=== PATIENT | female | born 1960 | race Caucasian/White ===

== ENCOUNTER 2024-12-19 19:07 | Inpatient (IN) | payer BC, SELFPAY ==
[2024-12-19] VITALS (10 sets, daily range): BP systolic 87–137; BP diastolic 47–84; BMI 31.4; BMI 29.9
[2024-12-19 15:07] LABS: Hematocrit 39.3 % (37.0-47.0); Hemoglobin 13.7 g/dL (12.0-16.0); Mean Corp Hgb Conc. 34.9 g/dL (33.0-37.0); Mean Corpuscular Volume 87.9 fL (81.0-99.0); Nucleated Red Blood Cells % 0 %; Platelet Count 482 10^3/uL (130-400); Red Cell Dist. Width 13.0 % (11.5-14.5)
[2024-12-19 15:20] LABS: ALT (SGPT) 17 U/L (0-35); AST (SGOT) 26 U/L (14-36); Albumin 3.7 g/dl (3.5-5.0); Alkaline Phosphatase 258 U/L (38-126); Blood Urea Nitrogen 42 mg/dl (7-17); Calcium 9.1 mg/dl (8.4-10.2); Carbon Dioxide 21 mmol/L (22-30); Chloride 102 mmol/L (98-107); Glucose 146 mg/dl (70-99); Lipase 59 U/L (23-300); Potassium 3.7 mmol/L (3.5-5.1); Sodium 137 mmol/L (135-145); Total Protein 7.6 g/dl (6.3-8.2); eGFR 35.57
[2024-12-19 15:32] LABS: Troponin I < 0.012 ng/ml
--- NOTE | 2024-12-19 16:13 | ED.GENMED ---
History of Present Illness
General
Chief Complaint: Weakness
Source: patient
Exam Limitations: none
Time Seen by Provider: 12/19/24 15:57
History of Present Illness
History of Present Illness:
64-year-old female presents complaining of diffuse weakness and generalized pain. Recent diagnosis of unspecified cancer most prominent in the neck. She has been undergoing tests including CAT scans and most recently had a PET scan today. She
states she is not able to eat or drink anything anytime she drinks water comes right back up. She feels very dehydrated. Her cancer diagnosis is new and she is currently in the workup to determine her primary type of cancer. She follows with
Nelida from oncology. No other complaints at this time
Phy Exam
Physical Exam
Physical Exam:
General: Well-developed female no acute respiratory distress
HEENT normocephalic mucosa dry neck with diffuse adenopathy most prominent on the right
Lungs: Clear no obvious wheeze
Heart: Regular rate and rhythm
Abdomen is soft nontender nondistended
Extremities: No cyanosis or edema
Course
Orders/Labs/Results
Orders:
Orders
12/19/24 14:50
ECG [Electrocardiogram (*1)] Urgent
Reason for Study: Chest Pain
EKG- Treatment ONCE
12/19/24 14:59
Complete Blood Count/With Diff Urgent
Comprehensive Metabolic Panel Urgent
Lactate Level [Lactic Acid] Q4H
Lipase Urgent
Troponin I Urgent
Blood Culture Urgent
KATHE Source: Blood/Venous
Specimen Description:
12/19/24 16:09
0.9% Sodium Chloride 1000 ml [Nss] 1,000 ml IV BOLUS
Ondansetron Injectable [Zofran] 4 mg IV NOW STA
12/19/24 19:00
Lactate Level [Lactic Acid] Q4H
Abnormal Lab Results
12/19/24
14:59
WBC 15.5 H 10^3/uL
(4.8-10.8)
Plt Count 482 H 10^3/uL
(130-400)
Abs Immat Gran (auto) 0.1 H 10^3/uL
(0-0.05)
Absolute Neuts (auto) 13.2 H 10^3/uL
(1.4-6.5)
Absolute Lymphs (auto) 0.6 L 10^3/uL
(1.2-3.4)
Absolute Monos (auto) 1.5 H 10^3/uL
(0.1-0.6)
Immature Gran % 0.6 H %
(0-0.5)
Neutrophils % 85.3 H %
(42.2-75.2)
Lymphocytes % 3.9 L %
(20.5-51.1)
Monocytes % 9.7 H %
(1.7-9.3)
Carbon Dioxide 21 L mmol/L
(22-30)
BUN 42 H mg/dl
(7-17)
Creatinine 1.6 H mg/dL
(0.6-1.0)
Glucose 146 H mg/dl
(70-99)
Alkaline Phosphatase 258 H U/L
(38-126)
12/19/24 14:59
12/19/24 14:59
Vital Signs
Initial and Last Documented VS:
Initial Vital Signs
Temp Pulse Resp BP Pulse Ox
98.6 F 111 20 87/53 98
12/19/24 14:42 12/19/24 14:42 12/19/24 14:42 12/19/24 14:42 12/19/24 14:42
Last Documented Vital Signs
Temp Pulse Resp BP Pulse Ox
98.6 F 111 20 87/53 98
12/19/24 14:42 12/19/24 14:42 12/19/24 14:42 12/19/24 14:42 12/19/24 16:15
MDM/Problems Addressed
Differential Diagnosis Includes:
Patient with generalized weakness unable to tolerate anything by mouth and recent diagnosis of unspecified cancer. She had a PET scan today. In triage she is hypotensive. She has appears very dry on exam. Creatinine is 1.6. I suspect acute
dehydration. Patient unable to eat or drink I suspect she would warrant admission to the hospital for acute kidney injury in the setting of acute dehydration. Fluids ordered
*Pulse Oximetry
SaO2: 98
Oxygen Mode of Delivery: Room air
Patient hypoxic: no
*Critical Care Note
Total Time (30-74mins, 75-104mins- exclusive of procedures): Not Applicable
ED Attending Note
-
Portions of this chart may have been created with voice recognition software.� Occasional wrong word or��sound alike� substitutions may have occurred due to the inherent limitations of voice recognition software.
Discharge Plan
Departure
Patient Disposition: Admit
Date of Disposition: 12/19/24
Time of Disposition: 16:23
Presentation/result/management discussed w/ accepting MD/DO: Hospitalist
Patient with high blood pressure during this ER visit?: No
Discharge Problem:
Acute dehydration
Referrals:
Adilia Calabrese DO [Family Provider, Family Practice]
Discharge Date and Time
Print Language: BELIZEAN
[2024-12-19] MEDS: NSS 1000 IV (16:26)
[2024-12-19] MEDS: ZOFRAN 4 MG IV (16:26)
--- NOTE | 2024-12-19 18:12 | HPS.HSE ---
Family Physician
-
Family Physician: Adilia Calabrese
Chief Complaint
-
Dysphagia, Weakness, Generalized Pain
History of Present Illness
Mrs. Reid is a 64-year-old male with a past medical history of coronary artery disease status post PCI X2, HTN, PUD, HPV, hepatitis C, GERD, HLD and unspecified cancer who presented to the emergency department today with a complaint of weakness
and generalized pain. Patient stated that she was 'dehydrated 'because she has had progressively worsening dysphagia, dry heaving, vomiting with oral intake since November 28. She states that she did not want to come to the hospital for these issues
until she had her PET/CT for her suspected cancer. The study was done this morning and the patient came immediately to the emergency department after. She states that she has not been able to eat or drink anything and when she attempts to eat or
drink it comes right back up. Today she also notes some lightheadedness and dark urine. Otherwise denies chest pain, shortness of breath, gastrointestinal symptoms, abnormal bleeding or bruising.
In the emergency department, blood pressure was 82/53 and patient was tachycardic at 111. Patient was afebrile and saturating 96% on room air. CBC showed a white blood cell count of 15.5 K and platelets of 482. CMP showed a creatinine of 1.6
(creatinine less than 1 week ago was 0.7). Liver studies showed an isolated elevated alkaline phosphatase of 258. The patient was started on IV fluids with hemodynamics improved to 102/60.
Medical History
Past Medical History
Past Medical History: Reports Other
Additional Past Medical History:
coronary artery disease status post PCI X2, HTN, PUD, HPV, hepatitis C, GERD, HLD and unspecified cancer
Past Surgical History: Reports Other
Additional Past Surgical History:
PCI, hysterectomy
Social History
Tobacco: Former Smoker (Quit 4 months ago, started in late 20s, pack per day not quantified by patient)
Alcohol: Occasional
Drug: None
Family History
Family History: Not pertinent
Allergies / Home Medications
Allergies reflects when Allergies were last updated in [facility].
Home Medications with original date entered in [facility]
Allergy/Medication List:
NKDA
Clopidogrel 75 mg p.o. twice daily
Ezetimibe 10 mg p.o. every afternoon
Famotidine 20 mg p.o. twice daily
Hydrochlorothiazide 25 mg p.o. daily
Losartan 50 mg p.o. daily
Metoprolol succinate 50 mg p.o. daily
Omeprazole 20 mg p.o. daily
Rosuvastatin 10 mg p.o. every afternoon
Review of Systems
-
History Source: Patient
A 12 point ROS was completed and negative except as noted: Yes
Physical Exam
Vital Signs
Vital Signs
Temp Pulse Resp BP Pulse Ox
98.6 F 98 33 104/84 94
12/19/24 14:42 12/19/24 18:00 12/19/24 18:00 12/19/24 18:00 12/19/24 18:09
Physical Exam
General: No Apparent Distress, Comfortable, Conversant and Morbidly Obese; No Respiratory Distress
HEENT: NormoCephalic, Anicteric, Neck Mass (Right-sided) and Other (Diffuse lymphadenopathy)
Respiratory: Clear; No Wheezes, Rales or Rhonchi
Cardiac: S1/S2
GI: Soft, Non Tender and Non Distended
Musculoskeletal: No Clubbing, No Cyanosis and No Edema
Skin: Warm
Neuro: Awake, Alert and Nonfocal/grossly intact
Psych: Calm
Laboratory Results
-
12/19/24 14:59
12/19/24 14:59
Laboratory Results
Lactic Acid 1.4 mmol/L (0.7-2.0) 12/19/24 14:59
Total Bilirubin 0.9 mg/dl (0.2-1.3) 12/19/24 14:59
AST 26 U/L (14-36) 12/19/24 14:59
ALT 17 U/L (0-35) 12/19/24 14:59
Alkaline Phosphatase 258 U/L (38-126) H 12/19/24 14:59
Troponin I < 0.012 ng/ml 12/19/24 14:59
Lipase 59 U/L (23-300) 12/19/24 14:59
Data Reviewed
-
CT Scan: Report Reviewed by me and Discussed with Patient
Lab Data: Labs Reviewed by me and Discussed with Patient
Impression/Plan
-
1. Hypovolemic Shock GREY [employer] TESTER, resolved s/p Fluid Bolus
- 82/66 with MADHURI on admission
- Given 1L NS Bolus in ED with improvement in BP to 102/60
- 500mL NSS Bolus followed by maintainence with D5LR at 125 mL/hr
- Hold Home BP meds
2. Failure to Thrive
- Most likely 2/2 esophageal obstruction
- NPO; IVF with D5LR
- CT Chest/Abdomen in AM to assess progression of neck mass
- Discussed radiation therapy vs. PEG
- Oncology Consult
3. Moderate Pericardial Effusion
- new, as seen on PET/CT (12/19)
- Echo (12/19):
- Cardiology Consult:
4. MADHURI
- Likely secondary to dehydration
- Continue IVF
- Hold HCTZ/Losartan
- Repeat BMP in AM; if improved, can go forward with CT with IV contrast
5. Leukocytosis/Thrombocytosis
- Likely reactive, follow CBC
6. Head/Neck CA
- Oncology Consult, see above.
[2024-12-19] MEDS: D5LR 1000 IV (22:00)
[2024-12-20 03:21] VITALS: BP 129/69
[2024-12-20] MEDS: D5LR 1000 IV ×2 (05:35→15:55)
[2024-12-20 07:00] VITALS: BP 125/69
[2024-12-20 07:15] LABS: Hematocrit 35.0 % (37.0-47.0); Hemoglobin 12.0 g/dL (12.0-16.0); Mean Corp Hgb Conc. 34.3 g/dL (33.0-37.0); Mean Corpuscular Volume 88.2 fL (81.0-99.0); Nucleated Red Blood Cells % 0 %; Platelet Count 375 10^3/uL (130-400); Red Cell Dist. Width 13.0 % (11.5-14.5)
--- NOTE | 2024-12-20 07:46 | W.PN.CARDCBS ---
Today's Communication / Plan
-
Follow up on AM labs
BP improving
Continue to hold OP BP meds
Echo this admission
Impression / Plan
-
PCP: Dr. Calabrese
Tipple Tender: Dr. Neri ([facility])
Impression:
Advanced malignancy of head and neck with marked lymphadenopathy along with extensive osseous lesions
Moderate pericardial effusion
Mild hypotension and sinus tachycardia
Dehydration
CAD
h/o PCI 2013
Leukocytosis and thrombocytosis
Acute renal failure creatinine of 1.6 with elevated alkaline phosphatase
Hypertension
Hyperlipidemia
PET CT scan 12/19/2024 with numerous scattered FDG lesions in nearly all of the axial skeleton including ribs, humerus, sternum, pelvis, and enlarged lymph nodes in the mediastinum and head and neck area. Moderate pericardial effusion
Plan:
-Patient has suspected advanced cancer of head and neck. Unclear primary. Workup in process as outpatient. She had elective outpatient PET/CT 12/19 which noted numerous scattered FDG osseous lesions as well as lymphadenopathy and moderate
pericardial effusion.
-Presented to [facility] ER for evaluation with weeks of fatigue, shortness of breath, and failure to thrive. Noted to be hypotensive and tachycardic in ER, so admitted for further workup and evaluation.
-BP improving. Feels well.
-As noted above, PET/CT 12/19 revealed moderate pericardial effusion. Will check echo this admission.
-Does not clinically appear to be in tamponade, so no current plans for pericardiocentesis unless she becomes clinically unstable.
-Known history of CAD with PCI in 2013. Plavix held, start aspirin 81 mg daily once able to take PO.
-Outpatient BP medications (Toprol, losartan, and HCTZ) on hold due to hypotension on arrival. BP stable this a.m. Continue to follow.
-Continue IV fluids per primary service. Creat 1.6 12/19. Await a.m. labs.
-Oncology consulted by primary service. For possible CT scan of chest and abdomen this a.m.
HPI: 64-year-old female with past medical history of coronary artery disease status post PCI x 2, hypertension, hyperlipidemia GERD with advanced cervical mass/lymphadenopathy and likely cancer of unknown etiology presents to [facility] with
fatigue, shortness of breath, failure to thrive, and weight loss. She presented for an elective PET CT scan and was found to have a moderate pericardial effusion. She has not been able to eat or drink for weeks as she is having difficulty
swallowing. She denies any chest pains. She does have significant fatigue. Her breathing has been worse recently. She denies any lower extremity edema orthopnea. She has no palpitations or syncope. In the emergency room she was found to be
hypotensive with systolic blood pressures in the 90 range and tachycardic.
Progress Note - Tipple Tender
Subjective
Date of Service: December 20, 2024
Feeling well. Just reports being tired.
Objective
Labs:
12/20/24 06:57
Labs
Hgb 12.0 g/dL (12.0-16.0) 12/20/24 06:57
Hct 35.0 % (37.0-47.0) L 12/20/24 06:57
Plt Count 375 10^3/uL (130-400) D 12/20/24 06:57
Sodium 137 mmol/L (135-145) 12/19/24 14:59
Potassium 3.7 mmol/L (3.5-5.1) 12/19/24 14:59
BUN 42 mg/dl (7-17) H 12/19/24 14:59
Creatinine 1.6 mg/dL (0.6-1.0) H 12/19/24 14:59
Glucose 146 mg/dl (70-99) H 12/19/24 14:59
Troponins
12/19/24
14:59
Troponin I < 0.012
Vital Signs and I&O:
Vital Signs
Temp Pulse Resp BP Pulse Ox
97.7 F 100 18 129/69 93
12/20/24 03:21 12/20/24 03:21 12/20/24 03:21 12/20/24 03:21 12/20/24 03:21
Vital Signs
Temp Pulse Resp BP Pulse Ox
97.7 F 100 18 129/69 93
12/20/24 03:21 12/20/24 03:21 12/20/24 03:21 12/20/24 03:21 12/20/24 03:21
Intake & Output
12/18/24 12/19/24 12/20/24 12/21/24
06:59 06:59 06:59 06:59
Intake Total 480 / 480
Balance 480 / 480
Physical Exam
Physical Exam
GEN: No distress, awake, alert, oriented x3
HEENT: anicteric, mmm, R neck mass/lymphadenopathy noted.
LUNGS: CTA, no wheezes/rales
CV: Reg, S1/S2, no murmur
EXT: No clubbing, cyanosis, or edema
NEURO: Gross non-focal
SKIN: Warm, dry, no rash
--- NOTE | 2024-12-20 07:59 | CON.ONC ---
Consultation
-
Date Consultation Requested: 12/20/24
Date Consultation Performed: 12/20/24
Requesting Provider: norris
Performing Provider: alex
Reason for Consultation: Malignant obstruction
Impression
Impression
Metastatic cancer unknown primary
Esophageal obstruction
Moderate pericardial effusion
Plan
Plan
IVF.
GI Evaluation for EGD and possible PEG.
Might be okay to await and do as outpatient depending on her clinical improvement with IVF.
PET does not suggest a primary esophageal mass.
T/C Cancer type ID or molecular next gen sequencing.
Once stabilized, F/U Dr. Krause for discussion of Tx CA Unk Prim
Patient History
History of Present Illness
64y/o female recently diagnosed with right neck lymphadenopathy w/ new diagnosis of carcinoma of unknown primary. She follows with Dr. Krause. The patient noted some right neck swelling, prompting CT imaging on 11/05/24 revealing extensive right neck
adenopathy. Partially visualized mediastinal adenopathy was also appreciated. The patient is a tobacco user. She also has a h/o cervical cancer, s/p hysterectomy, almost 20 years ago, per patient HPV positivity. CT chest/abdomen/pelvis on 11/13/24
revealed mild to moderate centrilobular emphysematous changes w/ some pleural thickening. A conglomerate of lymph nodes was appreciated in the right supraclavicular region measuring 2.2 x 1.3cm along w/ a right retroclavicular node measuring 9mm. A
left axillary node was appreciated 2.3 x 1.2cm. IR guided biopsy of right neck maxx conglomeration revealed carcinoma of unknown primary. Breast mammogram BARBIE. PET Scan yesterday 12/19:
Extensive FDG avid lymphadenopathy neck and to a lesser degree the mediastinum and bilateral axilla.
FDG avid enlarged portacaval lymph node.
Extensive FDG avid osseous lesions.
Findings are most in keeping with biopsy-proven neoplasm, of uncertain primary.
Focal increased FDG activity within the left vocal cord region, possibly inflammatory.
Moderate pericardial effusion, new from prior.
Patient presenting to the ED with weakness and generalized pain after getting staging PET/CT as part of workup for her cancer unknown primary. She is not been able to eat or drink anything with post prandial vomiting.
Patient Medication
�Medication �Instructions �Recorded �Confirmed �Last Taken �Type
clopidogrel 75 mg tablet (Plavix) 75 mg PO BID 12/19/24 12/19/24 5 Days Ago History
~12/14/24
ezetimibe 10 mg tablet (Zetia) 10 mg PO QPM 12/19/24 12/19/24 Unknown History
famotidine 20 mg tablet (Pepcid) 20 mg PO BID 12/19/24 12/19/24 Unknown History
hydrochlorothiazide 25 mg tablet 25 mg PO DAILY 12/19/24 12/19/24 Unknown History
losartan 50 mg tablet 50 mg PO DAILY 12/19/24 12/19/24 Unknown History
metoprolol succinate 50 mg 50 mg PO DAILY 12/19/24 12/19/24 Unknown History
tablet,extended release 24 hr
(Toprol XL)
omeprazole 20 mg tablet,delayed 20 mg PO DAILY 12/19/24 12/19/24 Unknown History
release
rosuvastatin 10 mg tablet (Crestor) 10 mg PO QPM 12/19/24 12/19/24 Unknown History
Active Medications
Generic Name Dose Route Start Last Admin
Trade Name Freq PRN Reason Stop Dose Admin
Acetaminophen 650 mg 12/19/24 20:32
Acetaminophen 325 Mg Tablet PO 01/16/25 20:31
On Hold: 12/20/24 07:31 Q4HPRN PRN
mild pain/CRANE/temp> 100.4F
Heparin Sodium 5,000 units 12/20/24 00:00 12/19/24 23:10
Heparin 5,000 Units/Ml 1 Ml Vial SC 01/17/25 00:00 Not Given
Q8 JANETTE
Hydralazine HCl 5 mg 12/19/24 20:32
Hydralazine 20 Mg/Ml Vial IV 01/16/25 20:31
Q4HPRN PRN
SBP > 140
Dextrose/Lactated Ringer's 1,000 mls @ 125 mls/hr 12/19/24 20:00 12/20/24 05:35
D5lr IV 1,000 mls
.Q8H JANTETE Administration
Pantoprazole Sodium 40 mg 12/20/24 08:00
Pantoprazole Sodium 40 Mg/10 Ml Vial IV 01/17/25 07:59
DAILY JANETTE
Sodium Chloride 0 flush 12/19/24 21:00
Sodium Chloride 0.9% (Flush) Syringe IV 01/16/25 20:59
PER PROTOCOL JANETTE
Sodium Chloride 10 ml 12/20/24 08:00
Sodium Chloride 0.9% (Preservative Free) 10 Ml Vial IV 01/17/25 07:59
DAILY JANETTE
Physical Exam
-
General: Well Developed, No Apparent Distress and Comfortable; Negative Respiratory Distress
HEENT: Negative Jaundice
Cardiology: Normal Sinus Rhythm, S1 and S2
Pulmonary: Clear
GI: Soft
Musculoskeletal: No Edema
Extremities: No C/C/E
Neurology: Non Focal
Hematologic / Lymphatic: Lymphadenopathy (right neck)
Labs
Lab Results
WBC 10.2 10^3/uL (4.8-10.8) 12/20/24 06:57
RBC 3.97 10^6/uL (4.20-5.40) L 12/20/24 06:57
Hgb 12.0 g/dL (12.0-16.0) 12/20/24 06:57
Hct 35.0 % (37.0-47.0) L 12/20/24 06:57
MCV 88.2 fL (81.0-99.0) 12/20/24 06:57
MCH 30.2 pg (27.0-31.0) 12/20/24 06:57
MCHC 34.3 g/dL (33.0-37.0) 12/20/24 06:57
RDW 13.0 % (11.5-14.5) 12/20/24 06:57
Plt Count 375 10^3/uL (130-400) D 12/20/24 06:57
MPV 9.2 fL (7.4-10.4) 12/20/24 06:57
Abs Immat Gran (auto) 0.1 10^3/uL (0-0.05) H 12/20/24 06:57
Absolute Neuts (auto) 8.0 10^3/uL (1.4-6.5) H 12/20/24 06:57
Absolute Lymphs (auto) 0.6 10^3/uL (1.2-3.4) L 12/20/24 06:57
Absolute Monos (auto) 1.4 10^3/uL (0.1-0.6) H 12/20/24 06:57
Absolute Eos (auto) 0.1 10^3/uL (0-0.7) 12/20/24 06:57
Absolute Basos (auto) 0.1 10^3/uL (0-0.2) 12/20/24 06:57
Immature Gran % 0.7 % (0-0.5) H 12/20/24 06:57
Neutrophils % 78.5 % (42.2-75.2) H 12/20/24 06:57
Lymphocytes % 6.2 % (20.5-51.1) L 12/20/24 06:57
Monocytes % 13.6 % (1.7-9.3) H 12/20/24 06:57
Eosinophils % 0.5 % (0-6) 12/20/24 06:57
Basophils % 0.5 % (0-2) 12/20/24 06:57
Creatinine 1.6 mg/dL (0.6-1.0) H 12/19/24 14:59
Vital Signs
Vital Signs
Temp Pulse Resp BP Pulse Ox
97.7 F 100 18 129/69 93
12/20/24 03:21 12/20/24 03:21 12/20/24 03:21 12/20/24 03:21 12/20/24 03:21
[2024-12-20] MEDS: PROTONIX IV 40 MG IV (08:43)
[2024-12-20] MEDS: NSS (PRESERVATIVE FREE) 10 ML IV (08:44)
--- NOTE | 2024-12-20 09:32 | PTOTSP ---
ST Screening
Pt admitted from home for diffuse weakness, generalized pain, feeling of dehydration, and recent dx of cancer (unknown primary location) but primarily in the area of the neck. Pt has had progressive increase in dysphagia that has significantly
worsened since the beginning of the month and is unable to even tolerate water at this time as it comes right back up. Per MD, pt presents with R sided cervical fullness with diffuse adenopathy, and likely esophageal obstruction related to cervical
mass/adenopathy. Pt is pending additional imaging without oral contrast due to risk of aspiration. Pt is being recommended for consideration for PEG. Pt would benefit from an MANAGER CLIENT SERVICE consultation for a formal swallowing evaluation as well as for
education purposes regarding swallowing function and the benefit of MANAGER CLIENT SERVICE services during the tx of head/neck cancer as it pertains to dysphagia, if pt has restorative goals of care. Please place formal MANAGER CLIENT SERVICE consult when able. Thank you.
[2024-12-20 09:48] LABS: ALT (SGPT) 15 U/L (0-35); AST (SGOT) 25 U/L (14-36); Albumin 3.0 g/dl (3.5-5.0); Alkaline Phosphatase 216 U/L (38-126); Blood Urea Nitrogen 32 mg/dl (7-17); Calcium 8.4 mg/dl (8.4-10.2); Carbon Dioxide 24 mmol/L (22-30); Chloride 107 mmol/L (98-107); Estimated Creatinine Clearance 71 ml/min; GGTP 34 U/L (12-43); Glucose 124 mg/dl (70-99); Potassium 3.3 mmol/L (3.5-5.1); Sodium 140 mmol/L (135-145); Total Protein 6.4 g/dl (6.3-8.2); eGFR > 60.00
[2024-12-20 11:00] VITALS: BP 127/67
--- NOTE | 2024-12-20 13:06 | W.PN.HOSP.TC ---
Today's Communication/Plan
-
.
Assessment / Plan
Assessment / Plan
Sapna Gupta is a 64F PMHx CAD s/p PCIx2, hypertension, dyslipidemia, GERD, unspecified cancer of the neck (in process of evaluation) who presented to the ED with complaint of weakness, difficulty with PO intake (dysphagia and nausea) and
generalized pain. Recent dx of CA of unknown primary origin. PETCT with right sided neck CA, mets to bone and lymph nodes.
1. Hypovolemia (resolved)
- 82/66 with MADHURI on admission
- Given 1L NS Bolus in ED with improvement in BP to 102/60
- Given 1L NS Bolus on admission; continued on D5LR maintenance at 125ml/hr
- BPs stabilized, metoprolol restarted, continue to hold ARB/HCTZ
2. Failure to Thrive
- Most likely 2/2 esophageal obstruction
- NPO; IVF with D5LR
- CT Chest/Abdomen (12/20): No clear evidence for an esophageal mass or extrinsic compression on the esophagus, other than possible compression from the large pericardial effusion.
- Discussed radiation therapy vs. PEG
- Oncology Consult
- GI consult for alternative means of feed
3. Moderate Pericardial Effusion
- new, as seen on PET/CT (12/19)
- CT Chest/Abdomen (12/20): Large pericardial effusion with continued increase in size compared to the PET/CT from 12/19/2024. New compared to the CT from 11/13/2024.
- Echo (12/20):
- Appreciate Cardiology Recs: no current plans for pericardiocentesis unless she becomes clinically unstable.
4. MADHURI (resolved)
- 1.6 on arrival, 0.8 today
- Likely secondary to dehydration
- Continue IVF
- Hold HCTZ/Losartan
- Daily BMP
5. Leukocytosis/Thrombocytosis
- Resolved
6. Head/Neck CA
- Appreciate Oncology Recs: T/C Cancer type ID or molecular next gen sequencing.
Once stabilized, F/U Dr. Krause for discussion of Tx CA Unk Prim
DVT PPx: SCD (patient declined subQ)
Diet: NPO
Code Status: Full
Anticipated Discharge: > 48 hours
Subjective/Interval History
-
Date of Service: December 20, 2024
Patient seen and examined while resting comfortably in bed. Daughters at bedside. Patient fluid resuscitated with 2 L normal saline boluses and D5 LR maintenance yesterday. Patient states that she is feeling much better today. No acute
complaints this morning. Last night, patient declined subcu heparin.
Objective Data
-
Labs:
Laboratory Results
12/20/24 12/20/24
06:57 09:14
WBC 10.2
Hgb 12.0
Hct 35.0 L
Plt Count 375 D
Sodium Cancelled 140
Potassium Cancelled 3.3 L
Chloride Cancelled 107
Carbon Dioxide Cancelled 24
BUN Cancelled 32 H
Creatinine Cancelled 0.8
Glucose Cancelled 124 H
Calcium Cancelled 8.4
Total Bilirubin Cancelled 0.7
AST Cancelled 25
ALT Cancelled 15
Alkaline Phosphatase Cancelled 216 H
Vital Signs:
Vital Signs
Temp Pulse Resp BP Pulse Ox
99.6 F 89 17 127/67 94
12/20/24 11:00 12/20/24 11:00 12/20/24 11:00 12/20/24 11:00 12/20/24 11:00
I&O
12/19/24 12/20/24 12/21/24
06:59 06:59 06:59
Intake Total 480 / 480
Balance 480 / 480
Review of Systems
-
History Source: Patient
Constitutional: Reports No Symptoms
Respiratory: Reports No Symptoms
Cardiac: Reports No Symptoms
Abdomen/GI: Reports No Symptoms
Genitourinary: Reports No Symptoms
Neuro: Reports No Symptoms
Physical Exam
-
General: No Apparent Distress, Comfortable and Conversant
HEENT: Atraumatic, Moist Mucous Membranes and Other (right sided neck mass)
Respiratory: Clear to Auscultation and Non Labored Respirations; Negative Wheezes, Rales, Rhonchi or Crackles
Cardiac: Regular Rhythm and S1/S2
GI: Soft, Nontender and Nondistended
Musculoskeletal: No Clubbing, No Cyanosis and No Edema
Skin: Warm
Neuro: Awake, Alert and Oriented
Psych: Calm
Data Reviewed
-
Labs: Labs Reviewed by me and Discussed with Patient
[2024-12-20 15:00] VITALS: BP 127/64
--- NOTE | 2024-12-20 15:23 | CON.GI ---
Consultation
-
Date/Time Consultation Requested: 12/20/2024
Date/Time Consultation Performed: 12/20/2024
Requesting Provider: Hospitalist
Performing Provider: Dr. Farfan
Reason for Consultation: Dysphagia and carcinoma of unknown primary
Medical History
Chief Complaint / HPI
History of Present Illness:
Sapna is a 64-year-old female smoker with medical history of CAD status post PCI x [address] [facility], cervical cancer and hysterectomy over 20 years ago who has never been to [facility] before follows with Dr. Krause as an outpatient.
She was diagnosed recently with advanced cervical lymphadenopathy with a recent PET scan showing FDG activity in the neck, mediastinum, bilateral axilla, portal caval node and extensive osseous lesions with some mild left vocal cord activity and a
large pericardial effusion. She was admitted to [place] on 12/19/2024 with failure to thrive, shortness of breath fatigue and 10lb weight loss who has had difficulty with postprandial vomiting. She was hypotensive in the emergency room and
tachycardic.
Patient states she has not been able to eat or drink anything and has had postprandial vomiting. Patient has been on Plavix but last taken 12/14/2024. She denies any dysphagia to liquids or solids. She denies feeling queasy or nauseous. She is
not a great historian and gives minimal answers.
Her hemoglobin 12.0, white count 10.2, MCV 88, platelets 375 blood pressure 129/69 afebrile
Patient states she saw Dr. Willard' GAMER at [facility] and was scheduled for an endoscopy this Sunday. She is up-to-date with colonoscopies with her last being roughly 2 and half years ago for benign polyps. She had an endoscopy roughly 1 to [address] Reyes that was subjectively normal other than a hiatal hernia. She states years ago she had an esophageal dilation. Much of her history comes from her daughter at her bedside.. Also states she had an ulcer in the past. She does
take a PPI daily. She is not on any NSAIDs. Her Plavix has been on hold because of waiting for the endoscopy.
Today, after IV hydration she is thirsty and hungry. She denies any shortness of breath at rest. She says she has positional chest pain when she rolls on her side.
Denies any abdominal pain. Had a small bowel movement yesterday but is moving less since she is not eating much.
Patient states she is up-to-date with cancer screenings including breast, colon cancer
Past Medical History
Past Medical History: Other (Quit smoking 3 months ago, CAD status post PCI x 2 in 2013, cervical cancer status post hysterectomy, COPD,)
Past Surgical History: Other (Hysterectomy)
Social History
Tobacco: Smoker (Recently quit)
Alcohol: Occasional
Drug: None
Living: With Family
Employment: Retired (Worked in administrative work)
Family History
Family History: Cancer (Sister with breast cancer)
Allergies / Home Medications
Allergy/AdvReac Type Severity Reaction Status Date / Time
No Known Allergies Allergy Unverified 12/19/24 14:48
�Medication �Instructions �Recorded
clopidogrel 75 mg tablet (Plavix) 75 mg PO BID 12/19/24
ezetimibe 10 mg tablet (Zetia) 10 mg PO QPM 12/19/24
famotidine 20 mg tablet (Pepcid) 20 mg PO BID 12/19/24
hydrochlorothiazide 25 mg tablet 25 mg PO DAILY 12/19/24
losartan 50 mg tablet 50 mg PO DAILY 12/19/24
metoprolol succinate 50 mg 50 mg PO DAILY 12/19/24
tablet,extended release 24 hr
(Toprol XL)
omeprazole 20 mg tablet,delayed 20 mg PO DAILY 12/19/24
release
rosuvastatin 10 mg tablet (Crestor) 10 mg PO QPM 12/19/24
Review of Systems
-
History Source: Patient and Family
All other systems: A 12 pt ROS was Negative except as stated above in HPI
Vital Signs
Temp Pulse Resp BP Pulse Ox
99.6 F 89 17 127/67 94
12/20/24 11:00 12/20/24 11:00 12/20/24 11:00 12/20/24 11:00 12/20/24 11:00
Physical Exam
Exam
General: No Apparent Distress and Comfortable
HEENT: Anicteric and Other (Hard palpable lymphadenopathy in the supraclavicular and right side of her neck)
Cardiac: S1/S2 and Murmur
GI: Soft, Non Tender and Normal Bowel Sounds
Neuro: AO x 3
Hematologic/Lymphatic: Lymphadenopathy
Psych: Calm
Results
WBC 10.2 10^3/uL (4.8-10.8) 12/20/24 06:57
Hgb 12.0 g/dL (12.0-16.0) 12/20/24 06:57
Hct 35.0 % (37.0-47.0) L 12/20/24 06:57
MCV 88.2 fL (81.0-99.0) 12/20/24 06:57
Plt Count 375 10^3/uL (130-400) D 12/20/24 06:57
Absolute Neuts (auto) 8.0 10^3/uL (1.4-6.5) H 12/20/24 06:57
Sodium 140 mmol/L (135-145) 12/20/24 09:14
Potassium 3.3 mmol/L (3.5-5.1) L 12/20/24 09:14
Chloride 107 mmol/L (98-107) 12/20/24 09:14
Carbon Dioxide 24 mmol/L (22-30) 12/20/24 09:14
BUN 32 mg/dl (7-17) H 12/20/24 09:14
Creatinine 0.8 mg/dL (0.6-1.0) 12/20/24 09:14
Calcium 8.4 mg/dl (8.4-10.2) 12/20/24 09:14
Total Bilirubin 0.7 mg/dl (0.2-1.3) 12/20/24 09:14
AST 25 U/L (14-36) 12/20/24 09:14
ALT 15 U/L (0-35) 12/20/24 09:14
Alkaline Phosphatase 216 U/L (38-126) H 12/20/24 09:14
Lipase 59 U/L (23-300) 12/19/24 14:59
Diagnostic Image Results:
--- CT chest abdomen 12/20/2024: Large pericardial effusion advanced from yesterday, unremarkable thyroid gland, bilateral neck, supraclavicular, mediastinal and bilateral axillary lymphadenopathy, mild emphysema large hiatal hernia, gallbladder and
bile ducts pancreas spleen renal glands are unremarkable, periportal lymphadenopathy, scattered osteoblastic metastasis throughout the imaged osseous structures.
--Radiologist commented saying no clear evidence of esophageal mass or extrinsic compression on the esophagus other than possible compression from the large pericardial effusion
CT imaging November 05, 2024 after noting some right neck swelling. Has mediastinal adenopathy.
CT chest abdomen pelvis in October revealed emphysema changes and pleural thickening with a significant amount of lymph nodes in the right supraclavicular area measuring over 2 cm with a left axillary node over 2 cm. IR guided biopsy of the right neck
lymph nodes revealed carcinoma of unknown primary.
PET CT scan 12/19/2024 with numerous scattered FDG lesions in nearly all of the axial skeleton including ribs, humerus, sternum, pelvis, and enlarged lymph nodes in the mediastinum and head and neck area and axilla as well as the portacaval lymph
node. Moderate pericardial effusion
Prior GI Procedures: Dr. Sun
EGD: Patient states roughly 2 years ago told she had a hiatal hernia
Colonoscopy: Patient states roughly 2 years ago, previously small benign polyps
Assessment / Plan
-
Sapna is a 64-year-old female with history of tobacco use, CAD status post PCI in 2013, cervical cancer status post hysterectomy who comes in with failure to thrive, shortness of breath, postprandial vomiting found to be in renal failure, large
pericardial effusion
# Failure to thrive -does not describe true dysphagia but she is a poor historian.
--Was having postprandial retching but denied nausea
She has a very large hiatal hernia on CT scan--the large pericardial effusion potentially is compressing esophagus slightly on CT scan
--Not in the read but her stomach appears either thickened or full of food
--Full liquid diet for now -patient is aware to go slow
-- after the echo of pericardial effusion are addressed, we will proceed to endoscopy
# Pericardial effusion -cardiology following and ordered an echocardiogram. Currently not in tamponade so holding off on any pericardiocentesis. Imaging just done today shows increase in size
# History of CAD status post PCI 2013 off Plavix (was off in preparation for an outpatient endoscopy on Sunday at [facility])
# Recent tobacco use
Lena Saucedo [phone] - daughter
Total Time Spent with Patient (in minutes): 75
Data Reviewed
-
CT Scan: Image Personally Visualized and interpreted and Report Reviewed by me
Old Records: Reviewed
-
-
Thank you for consultation and allowing me to participate in the patient's care. Please call the application release manager GI physician during the after hours with any questions or concerns.
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
[2024-12-20] MEDS: ZETIA 10 MG PO (17:53)
[2024-12-20] MEDS: CRESTOR 10 MG PO (17:53)
--- NOTE | 2024-12-20 19:39 | PTCARENOTE ---
pt with hard palpable mass on right side of neck, tolerating some clear liquids, no nausea, transferring with assist x1 to BR, gait steady but quick, vss, will continue to monitor.
[2024-12-20 19:46] VITALS: BP 104/63
[2024-12-20] MEDS: PEPCID 20 MG PO (20:39)
[2024-12-20 23:54] VITALS: BP 118/62
[2024-12-21] MEDS: D5LR 1000 IV (01:56)
[2024-12-21 03:17] VITALS: BP 127/61
[2024-12-21 05:34] VITALS: BMI 30.4
--- NOTE | 2024-12-21 06:52 | W.PN.ONC2 ---
Today's Communication / Plan
-
For EGD to evaluate esophageal obstruction from primary mass, extrinsic luminal narrowing or hiatal hernia. ? PEG. Appreciate GI consult.
Impression
Impression
Metastatic cancer unknown primary
Esophageal obstruction
Moderate pericardial effusion w/o tamponade
Plan
Plan
Appreciate GI Evaluation for EGD and possible PEG.
PET does not suggest a primary esophageal mass.
T/C Cancer type ID or molecular next gen sequencing.
Per cardiology, holding off on pericardiocentesis unless she became clinically unstable.
Once stabilized, F/U Dr. Krause for discussion of Tx CA Unk Prim
Subjective/Objective
Chief Complaint
ACS Heme Onc
Subjective
Good spirits this AM. Was seen by GI. Likely for EGD tomorrow.
Vital Signs:
Vital Signs
Temp Pulse Resp BP Pulse Ox
98.8 F 86 16 127/61 96
12/21/24 03:17 12/21/24 03:17 12/21/24 03:17 12/21/24 03:17 12/21/24 03:17
Lab Results:
Laboratory Data
WBC 10.2 10^3/uL (4.8-10.8) 12/20/24 06:57
Hgb 12.0 g/dL (12.0-16.0) 12/20/24 06:57
Plt Count 375 10^3/uL (130-400) D 12/20/24 06:57
eGFR > 60.00 12/20/24 09:14
Physical Exam
HEENT: Other (Right cervical LN'adenopathy); No Jaundice
Cardiology: S1 and S2
Pulmonary: Clear
GI: Soft
Extremities: No C/C/E
[2024-12-21 07:00] VITALS: BP 127/64
[2024-12-21 07:38] LABS: Hematocrit 33.6 % (37.0-47.0); Hemoglobin 11.5 g/dL (12.0-16.0); Mean Corp Hgb Conc. 34.2 g/dL (33.0-37.0); Mean Corpuscular Volume 89.1 fL (81.0-99.0); Platelet Count 389 10^3/uL (130-400); Red Cell Dist. Width 13.2 % (11.5-14.5)
[2024-12-21 08:29] LABS: Magnesium 2.0 mg/dl (1.6-2.3)
[2024-12-21] MEDS: PEPCID 20 MG PO ×2 (08:38→19:55)
[2024-12-21] MEDS: TOPROL XL 50 MG PO (08:39)
[2024-12-21] MEDS: PROTONIX 40 MG PO (08:39)
--- NOTE | 2024-12-21 08:46 | W.PN.HOSP.TC ---
Today's Communication/Plan
-
.
Assessment / Plan
Assessment / Plan
Sapna Gupta is a 64F PMHx CAD s/p PCIx2, hypertension, dyslipidemia, GERD, unspecified cancer of the neck (in process of evaluation) who presented to the ED with complaint of weakness, difficulty with PO intake (dysphagia and nausea) and
generalized pain. Recent dx of CA of unknown primary origin. PETCT with right sided neck CA, mets to bone and lymph nodes. She is admitted for failure to thrive and hypovolemia in the setting of decreased PO intake and possible esophageal
obstruction.
1. Hypovolemia (resolved)
- 82/66 with MADHURI on admission
- Given 1L NS Bolus in ED with improvement in BP to 102/60
- Given 1L NS Bolus on admission; continued on D5LR maintenance at 125ml/hr. Discontinued 12/21 with appropriate liquid diet intake.
- BPs stabilized, metoprolol restarted, continue to hold ARB/HCTZ for now.
2. Failure to Thrive
- Possibly 2/2 esophageal obstruction
- Not true dysphagia but patient is a poor historian.
- IVF with D5LR on admission; advanced to full liquid diet, patient tolerating well
- CT Chest/Abdomen (12/20): No clear evidence for an esophageal mass or extrinsic compression on the esophagus, other than possible compression from the large pericardial effusion.
- Discussed radiation therapy vs. PEG
- GI consult for alternative means of feed
- Appreciate GI recommendations
- Not in the CT read but her stomach appears either thickened or full of food
- After the echo of pericardial effusion are addressed, proceed to endoscopy
3. Moderate Pericardial Effusion
- new, as seen on PET/CT (12/19)
- CT Chest/Abdomen (12/20): Large pericardial effusion with continued increase in size compared to the PET/CT from 12/19/2024. New compared to the CT from 11/13/2024.
- Echo ordered 12/19; will be performed in AM
- Appreciate Cardiology Recs: no current plans for pericardiocentesis unless she becomes clinically unstable.
4. MADHURI (resolved)
- 1.6 on arrival, 0.6 today
- Likely secondary to dehydration
- Discontinued D5LR maintenance, patient now on full liquid diet, continue to monitor BMP and hydration status
- Hold HCTZ/Losartan
- Daily BMP
5. Leukocytosis/Thrombocytosis
- Resolved
6. Head/Neck CA
- Appreciate Oncology Recs: T/C Cancer type ID or molecular next gen sequencing.
- Once stabilized, F/U Dr. Krause for discussion of Tx CA Unknown Primary
- Patient scheduled for Brain MRI on Sunday ordered by Dr. Krause, see if radiology can still do while on admission.
7. Hypokalemia
- 3.4 this AM
- 40mEQ IV in AM, 40 mEQ IV in PM; may not tolerate large oral pill
- Monitor BMP, Mg
DVT PPx: SCD (patient declined subQ)
Diet: FLD
Code Status: Full
Anticipated Discharge: > 48 hours
Subjective/Interval History
-
Date of Service: December 21, 2024
Patient seen and examined while resting comfortably in bed. Daughter is at bedside. States she slept well last night. Tolerated clear liquid diet without issue. Denies nausea, vomiting, abdominal pain, or sensation of PO meds getting stuck in
esophagus. Notes some loose stool, mild. She is aware that diet must be taken slowly and with care. Denies CP, SOB, orthopnea, LE edema.
Objective Data
-
Labs:
Laboratory Results
12/21/24
07:24
WBC 9.6
Hgb 11.5 L
Hct 33.6 L
Plt Count 389
Vital Signs:
Vital Signs
Temp Pulse Resp BP Pulse Ox
99.2 F 92 18 127/64 94
12/21/24 07:00 12/21/24 08:39 12/21/24 07:00 12/21/24 08:39 12/21/24 07:00
I&O
12/20/24 12/21/24 12/22/24
06:59 06:59 06:59
Intake Total 480 / 480 1819
Balance 480 / 480 1819
Review of Systems
-
Constitutional: Reports No Symptoms
Respiratory: Reports No Symptoms
Cardiac: Reports No Symptoms
Abdomen/GI: Reports No Symptoms
Neuro: Reports No Symptoms
Physical Exam
-
General: No Apparent Distress, Comfortable and Conversant
HEENT: Normocephalic, Atraumatic and Anicteric
Respiratory: Clear to Auscultation and Non Labored Respirations; Negative Wheezes, Rales, Rhonchi or Crackles
Cardiac: Regular Rhythm, S1/S2 and Other (heart sounds clear (not muffled, not distant) to auscultation); Negative JVD
GI: Soft, Nontender, Nondistended, Normal Bowel Sounds and No Hepatosplenomegaly
Musculoskeletal: No Clubbing, No Cyanosis and No Edema
Skin: Warm and Dry
Neuro: Awake, Alert and Oriented
Psych: Calm
Data Reviewed
-
CT Scan: Image personally visualized and interpreted, Report Reviewed by me and Discussed with Patient
Labs: Labs Reviewed by me and Discussed with Patient
[2024-12-21] MEDS: KCL 270 MEQ IV (09:28)
[2024-12-21 10:45] LABS: Blood Urea Nitrogen 17 mg/dl (7-17); Calcium 8.4 mg/dl (8.4-10.2); Carbon Dioxide 22 mmol/L (22-30); Chloride 109 mmol/L (98-107); Estimated Creatinine Clearance 96 ml/min; Glucose 120 mg/dl (70-99); Potassium 3.4 mmol/L (3.5-5.1); Sodium 139 mmol/L (135-145); eGFR > 60.00
[2024-12-21 11:00] VITALS: BP 127/58
--- NOTE | 2024-12-21 12:10 | CM ---
Patient with daughter at bedside
Dx: hypotension, esophageal obstruction
seen by oncology
GI Evaluation for EGD and possible PEG.
PLAN: TBD, follow hospital progression, CM to follow for needs
--- NOTE | 2024-12-21 12:57 | W.PN.GI.CBS2 ---
Today's Communication / Plan
-
-- continue to graze throughout the day with the full liquid diet
Assessment / Plan
-
Sapna is a 64-year-old female with history of tobacco use, CAD status post PCI in 2013, cervical cancer status post hysterectomy who comes in with failure to thrive, shortness of breath, postprandial vomiting found to be in renal failure, large
pericardial effusion GI consulted for postprandial vomiting
# Failure to thrive -does not describe true dysphagia but she is a poor historian.
--Was having postprandial retching but denied nausea
She has a very large hiatal hernia on CT scan--the large pericardial effusion potentially is compressing esophagus slightly on CT scan
--Not in the read but her stomach appears either thickened or full of food
--Full liquid diet for now -patient is aware to go slow
-- after the echo and pericardial effusion are addressed, we will proceed to endoscopy
# Pericardial effusion -cardiology following and ordered an echocardiogram. Currently not in tamponade so holding off on any pericardiocentesis. Imaging just done 12/20/24 shows increase in size
# History of CAD status post PCI 2013 off Plavix (was off in preparation for an outpatient endoscopy on Sunday at [facility])
# Recent tobacco use
Lena Saucedo [phone] - daughter - do not call spouse
Subjective
Subjective
Date of Service: December 21, 2024
patient tolerated the full liquid diet but only ate a small amount,. Denied n/v but was just scared to push it. +Flatus
Objective
Data Reviewed
Laboratory Data:
Laboratory Results
12/21/24 07:24
12/21/24 07:24
Laboratory Results
Magnesium 2.0 mg/dl (1.6-2.3) 12/20/24 09:14
Total Bilirubin 0.7 mg/dl (0.2-1.3) 12/20/24 09:14
AST 25 U/L (14-36) 12/20/24 09:14
ALT 15 U/L (0-35) 12/20/24 09:14
Alkaline Phosphatase 216 U/L (38-126) H 12/20/24 09:14
Lipase 59 U/L (23-300) 12/19/24 14:59
Vital Signs and I&O:
Vital Signs
Temp Pulse Resp BP Pulse Ox
99.9 F 85 18 127/58 94
12/21/24 11:00 12/21/24 11:00 12/21/24 11:00 12/21/24 11:00 12/21/24 11:00
I&O
12/20/24 12/21/24 12/22/24
06:59 06:59 06:59
Intake Total 480 / 480 1820 / 1820
Balance 480 / 480 1820 / 1820
Physical Exam
Physical Exam
HEENT: Anicteric
GI: Soft, Non Distended, Non Tender and Normal Bowel Sounds
Extremities: No Edema
Neuro: Non Focal
--- NOTE | 2024-12-21 13:01 | W.PN.CARDCBS ---
Today's Communication / Plan
-
Check echo on Sunday to assess pericardial effusion
Impression / Plan
-
PCP: Dr. Calabrese
Control Officer: Dr. Neri ([facility])
Impression:
Advanced malignancy of head and neck with marked lymphadenopathy along with extensive osseous lesions
Moderate pericardial effusion
Mild hypotension and sinus tachycardia
Dehydration
CAD
h/o PCI 2013
Leukocytosis and thrombocytosis
Acute renal failure creatinine of 1.6 with elevated alkaline phosphatase
Hypertension
Hyperlipidemia
PET CT scan 12/19/2024 with numerous scattered FDG lesions in nearly all of the axial skeleton including ribs, humerus, sternum, pelvis, and enlarged lymph nodes in the mediastinum and head and neck area. Moderate pericardial effusion
Plan:
-Patient has suspected advanced cancer of head and neck. Unclear primary. Workup in process as outpatient. She had elective outpatient PET/CT 12/19 which noted numerous scattered FDG osseous lesions as well as lymphadenopathy and moderate
pericardial effusion.
-Presented to [facility] ER for evaluation with weeks of fatigue, shortness of breath, and failure to thrive. Noted to be hypotensive and tachycardic in ER, so admitted for further workup and evaluation.
-BP improving. Feels well.
-As noted above, PET/CT 12/19 revealed moderate pericardial effusion. Will check echo this admission.
-Does not clinically appear to be in tamponade, so no current plans for pericardiocentesis unless she becomes clinically unstable.
-Known history of CAD with PCI in 2013. Plavix held, start aspirin 81 mg daily once able to take PO.
-Outpatient BP medications (Toprol, losartan, and HCTZ) on hold due to hypotension on arrival. BP stable this a.m. Continue to follow.
-Continue IV fluids per primary service. Creat 1.6 12/19. Await a.m. labs.
-Oncology consulted by primary service. For possible CT scan of chest and abdomen this a.m.
HPI: 64-year-old female with past medical history of coronary artery disease status post PCI x 2, hypertension, hyperlipidemia GERD with advanced cervical mass/lymphadenopathy and likely cancer of unknown etiology presents to [facility] with
fatigue, shortness of breath, failure to thrive, and weight loss. She presented for an elective PET CT scan and was found to have a moderate pericardial effusion. She has not been able to eat or drink for weeks as she is having difficulty
swallowing. She denies any chest pains. She does have significant fatigue. Her breathing has been worse recently. She denies any lower extremity edema orthopnea. She has no palpitations or syncope. In the emergency room she was found to be
hypotensive with systolic blood pressures in the 90 range and tachycardic.
Progress Note - Control Officer
Subjective
Date of Service: December 21, 2024
No acute overnight events. Patient is resting comfortably in bed. No shortness of breath no chest pain. Not reporting any lightheadedness, dizziness or syncope.
Objective
Labs:
12/21/24 07:24
12/21/24 07:24
Labs
Hgb 11.5 g/dL (12.0-16.0) L 12/21/24 07:24
Hct 33.6 % (37.0-47.0) L 12/21/24 07:24
Plt Count 389 10^3/uL (130-400) 12/21/24 07:24
Sodium 139 mmol/L (135-145) 12/21/24 07:24
Potassium 3.4 mmol/L (3.5-5.1) L 12/21/24 07:24
BUN 17 mg/dl (7-17) 12/21/24 07:24
Creatinine 0.6 mg/dL (0.6-1.0) 12/21/24 07:24
Glucose 120 mg/dl (70-99) H 12/21/24 07:24
Troponins
12/19/24
14:59
Troponin I < 0.012
Vital Signs and I&O:
Vital Signs
Temp Pulse Resp BP Pulse Ox
99.9 F 85 18 127/58 94
12/21/24 11:00 12/21/24 11:00 12/21/24 11:00 12/21/24 11:00 12/21/24 11:00
Vital Signs
Temp Pulse Resp BP Pulse Ox
99.9 F 85 18 127/58 94
12/21/24 11:00 12/21/24 11:00 12/21/24 11:00 12/21/24 11:00 12/21/24 11:00
Intake & Output
12/19/24 12/20/24 12/21/24 12/22/24
06:59 06:59 06:59 06:59
Intake Total 480 / 480 1820 / 1820
Balance 480 / 480 1820 / 1820
Physical Exam
Physical Exam
Gen: NAD, AAOx3
HEENT: NC/AT, sclera anicteric
Neck: No JVD
CV: RRR, NL s1/s2, no M/R/G
Lungs: CTAB
Abd: S/ND
Ext: No LE edema
Skin: Warm, dry
Neuro: Non-focal
[2024-12-21 15:00] VITALS: BP 127/67
[2024-12-21] MEDS: ZETIA 10 MG PO (17:16)
[2024-12-21] MEDS: CRESTOR 10 MG PO (17:16)
[2024-12-21 19:00] VITALS: BP 118/66
[2024-12-21] MEDS: TYLENOL 650 MG PO (19:55)
[2024-12-21 23:00] VITALS: BP 120/60
[2024-12-22 03:00] VITALS: BP 124/61
[2024-12-22 06:00] VITALS: BMI 30.3
[2024-12-22 07:00] VITALS: BP 135/67
[2024-12-22 07:05] LABS: Hematocrit 34.4 % (37.0-47.0); Hemoglobin 11.5 g/dL (12.0-16.0); Mean Corp Hgb Conc. 33.4 g/dL (33.0-37.0); Mean Corpuscular Volume 90.5 fL (81.0-99.0); Platelet Count 368 10^3/uL (130-400); Red Cell Dist. Width 13.2 % (11.5-14.5)
[2024-12-22] MEDS: PROTONIX 40 MG PO (08:52)
[2024-12-22] MEDS: TOPROL XL 50 MG PO (08:52)
[2024-12-22] MEDS: PEPCID 20 MG PO ×2 (08:52→20:22)
[2024-12-22 11:05] VITALS: BP 145/68
--- NOTE | 2024-12-22 11:44 | W.PN.CARDCBS ---
Addendum entered and electronically signed by Malcolm Correa MD 12/22/24 12:49:
I saw and examined the patient.
The PHYSICAL BIOCHEMIST or PA's note was reviewed and I agree with the note.
Comment: General: Well developed, well nourished in NAD.
Neck: Supple, no JVD, HJR, carotids +2 B/L, no bruits bilaterally.
Heart: Non displaced PMI, RRR, no murmurs, No S3, S4, no rubs.
Lungs: Scattered rhonchi
Extremities: No clubbing, cyanosis or edema bilaterally.
Neuro: Grossly nonfocal, awake, alert and oriented x3.
Echocardiogram with moderate to large pericardial effusion but no evidence of tamponade. She is stable for GI workup/testing without further procedures. Pericardial effusion will need to be followed closely as an outpatient however she remains
asymptomatic and no treatment needed at current time. She has cardiology follow-up at [facility]. Discussed with primary service and GI
Original Note:
Today's Communication / Plan
-
Echo w/ moderate-large pericardial effusion.
No plan for pericardiocentesis as no evidence of hemodynamic compromise and patient is clinically stable.
For possible EGD per GI
Will need to follow pericardial effusion w/ repeat echoes
Impression / Plan
-
PCP: Dr. Calabrese
Negative Turner: Dr. Neri ([facility])
Impression:
Advanced malignancy of head and neck with marked lymphadenopathy along with extensive osseous lesions
Moderate pericardial effusion
Mild hypotension and sinus tachycardia
Dehydration
CAD
h/o PCI 2013
Leukocytosis and thrombocytosis
Acute renal failure creatinine of 1.6 with elevated alkaline phosphatase
Hypertension
Hyperlipidemia
PET CT scan 12/19/2024 with numerous scattered FDG lesions in nearly all of the axial skeleton including ribs, humerus, sternum, pelvis, and enlarged lymph nodes in the mediastinum and head and neck area. Moderate pericardial effusion
Echo 05/31/2023: EF 55%, grade I diastolic dysfunction, mild MR, trace TR
Echo 12/22/2024: EF 60-65%, aortic sclerosis without stenosis, trace AR, moderate to large pericardial effusion without evidence of hemodynamic compromise. Pericardial effusion measures up to 3.1 cm inferolaterally
Plan:
-Patient has suspected advanced cancer of head and neck. Unclear primary. Workup in process. Presented with SOB and failure to thrive. Noted to be hypotensive and tachycardic in ER resulting in admission.
-OP PET/CT 12/19 which noted numerous scattered FDG osseous lesions as well as lymphadenopathy and moderate pericardial effusion.
-CT of chest/abdomen 12/20 showed large pericardial effusion with lymphadenopathy, multifocal osteoblastic metastases, and large hiatal hernia.
-Echo 12/22 confirmed moderate to large pericardial effusion without evidence of hemodynamic compromise.
-BP and HR stable. Feeling overall well. No plan for pericardiocentesis at this time unless she becomes clinically unstable.
-Known history of CAD with PCI in 2013. Plavix held, consider starting aspirin 81 mg daily.
-GI following and there is consideration for EGD.
-BP stable on Toprol 50mg daily. OP losartan and HCTZ on hold due to hypotension on arrival.
-Creat has normalized, down to 0.6 this AM.
-Will need to follow pericardial effusion w/ periodic echoes as OP if no intervention needed this admission.
HPI: 64-year-old female with past medical history of coronary artery disease status post PCI x 2, hypertension, hyperlipidemia GERD with advanced cervical mass/lymphadenopathy and likely cancer of unknown etiology presents to [facility] with
fatigue, shortness of breath, failure to thrive, and weight loss. She presented for an elective PET CT scan and was found to have a moderate pericardial effusion. She has not been able to eat or drink for weeks as she is having difficulty
swallowing. She denies any chest pains. She does have significant fatigue. Her breathing has been worse recently. She denies any lower extremity edema orthopnea. She has no palpitations or syncope. In the emergency room she was found to be
hypotensive with systolic blood pressures in the 90 range and tachycardic.
Progress Note - Negative Turner
Subjective
Date of Service: December 22, 2024
Overall feeling well, just tired this AM.
Objective
Labs:
12/22/24 06:47
Labs
Hgb 11.5 g/dL (12.0-16.0) L 12/22/24 06:47
Hct 34.4 % (37.0-47.0) L 12/22/24 06:47
Plt Count 368 10^3/uL (130-400) 12/22/24 06:47
Sodium 139 mmol/L (135-145) 12/21/24 07:24
Potassium 3.4 mmol/L (3.5-5.1) L 12/21/24 07:24
BUN 17 mg/dl (7-17) 12/21/24 07:24
Creatinine 0.6 mg/dL (0.6-1.0) 12/21/24 07:24
Glucose 120 mg/dl (70-99) H 12/21/24 07:24
Troponins
12/19/24
14:59
Troponin I < 0.012
Vital Signs and I&O:
Vital Signs
Temp Pulse Resp BP Pulse Ox
98.0 F 91 18 135/67 97
12/22/24 07:00 12/22/24 08:52 12/22/24 07:00 12/22/24 08:52 12/22/24 07:00
Vital Signs
Temp Pulse Resp BP Pulse Ox
98.0 F 91 18 135/67 97
12/22/24 07:00 12/22/24 08:52 12/22/24 07:00 12/22/24 08:52 12/22/24 07:00
Intake & Output
12/20/24 12/21/24 12/22/24 12/23/24
06:59 06:59 06:59 06:59
Intake Total 480 / 480 1820 / 0 1440 / 1440
Balance 480 / 480 1819 / 1819 1440 / 1440
Physical Exam
Physical Exam
GEN: No distress, awake, alert, oriented x3
HEENT: mmm
LUNGS: CTA b/l, no wheezes/rales
CV: Reg, S1/S2, no murmur
EXT: No clubbing, cyanosis, or edema
NEURO: Gross non-focal
SKIN: Warm, dry, no rash
[2024-12-22 12:01] LABS: Blood Urea Nitrogen 14 mg/dl (7-17); Calcium 8.7 mg/dl (8.4-10.2); Carbon Dioxide 18 mmol/L (22-30); Chloride 110 mmol/L (98-107); Estimated Creatinine Clearance 96 ml/min; Glucose 104 mg/dl (70-99); Magnesium 1.7 mg/dl (1.6-2.3); Potassium 3.9 mmol/L (3.5-5.1); Sodium 139 mmol/L (135-145); eGFR > 60.00
--- NOTE | 2024-12-22 14:06 | CM ---
Patient seen at bedside with daughter Lena
Echo today
PLAN: tbd, follow hospital progress, CM to follow for needs
[2024-12-22] MEDS: TYLENOL 650 MG PO (14:37)
[2024-12-22 15:00] VITALS: BP 143/83
--- NOTE | 2024-12-22 17:05 | W.PN.GI.CBS2 ---
Today's Communication / Plan
-
-- NPO after midnight for EGD
Assessment / Plan
-
Sapna is a 64-year-old female with history of tobacco use, CAD status post PCI in 2013, cervical cancer status post hysterectomy who comes in with failure to thrive, shortness of breath, postprandial vomiting found to be in renal failure, large
pericardial effusion GI consulted for postprandial vomiting
# Failure to thrive -does not describe true dysphagia but she is a poor historian.
--Was having postprandial retching but denied nausea
She has a very large hiatal hernia on CT scan--the large pericardial effusion potentially is compressing esophagus slightly on CT scan
--Not in the read but her stomach appears either thickened or full of food
--Full liquid diet for now -patient is aware to go slow
--Patient had her echocardiogram today and despite large paracentesis there was no tamponade physiology and cardiology felt she was okay to proceed to endoscopy
# Pericardial effusion -cardiology following - Currently not in tamponade so holding off on any pericardiocentesis. Imaging just done 12/20/24 shows increase in size
# History of CAD status post PCI 2013 off Plavix (was off in preparation for an outpatient endoscopy on Sunday at [facility])
# Recent tobacco use
Lena Saucedo [phone] - daughter - do not call spouse
Subjective
Subjective
Date of Service: December 22, 2024
Patient is taken in minimal liquids. She is more scared to take anything in. Denies any nausea or vomiting today.
Objective
Data Reviewed
Laboratory Data:
Laboratory Results
12/22/24 06:47
12/22/24 06:47
Laboratory Results
Magnesium 1.7 mg/dl (1.6-2.3) 12/22/24 06:47
Total Bilirubin 0.7 mg/dl (0.2-1.3) 12/20/24 09:14
AST 25 U/L (14-36) 12/20/24 09:14
ALT 15 U/L (0-35) 12/20/24 09:14
Alkaline Phosphatase 216 U/L (38-126) H 12/20/24 09:14
Lipase 59 U/L (23-300) 12/19/24 14:59
Vital Signs and I&O:
Vital Signs
Temp Pulse Resp BP Pulse Ox
98.6 F 86 18 143/83 94
12/22/24 15:00 12/22/24 15:00 12/22/24 15:00 12/22/24 15:00 12/22/24 15:00
I&O
12/21/24 12/22/24 12/23/24
06:59 06:59 06:59
Intake Total 1820 / 1820 1440 / 1440
Balance 1820 / 1820 1440 / 1440
Physical Exam
Physical Exam
HEENT: Anicteric
Pulmonary: Clear
GI: Soft, Non Distended and Non Tender
Neuro: Non Focal
[2024-12-22] MEDS: CRESTOR 10 MG PO (17:40)
[2024-12-22] MEDS: ZETIA 10 MG PO (17:40)
--- NOTE | 2024-12-22 18:32 | W.PN.HOSP.TC ---
Addendum entered and electronically signed by Jeffrey Gale MD 12/22/24 22:48:
Attending Addendum-
I saw and evaluated the patient. I reviewed the resident�s note and agree with findings and plan as documented in the resident�s note. Sub: patient denies dysphagia. Does complain of fatigue. Seen with daughter present. No fevers chills NV loss of
appetite,cp, or palps. Full 12 point ROS reviewed and negative except as documented Exam: Vitals reviewed in chart GEN-NAD heart RRR no M/R/G lungs clear abd soft HEENT-right sided neck mass palpated
Plan:
#Failure to Thrive
- Not true dysphagia but patient is a poor historian.
- CT Chest/Abdomen (12/20): No clear evidence for an esophageal mass or extrinsic compression on the esophagus, other than possible compression from the large pericardial effusion.
- Discussed radiation therapy vs. PEG
- Appreciate GI recommendations
- Not in the CT read but her stomach appears either thickened or full of food
- cleared by cards
- for ENDO in am NPOpMN
#Pericardial Effusion
- new, as seen on PET/CT (12/19)
- echo 12/22-EF 60-65, Moderate to large pericardial effusion without evidence of hemodynamic compromise. Pericardial effusion measured up to 3.1 cm inferolaterally
- no evidence of tamponade
- Appreciate Cardiology Rec- cont to follow no intervention required
# Met Head/Neck CA
- Appreciate Oncology Recs: T/C Cancer type ID or molecular next gen sequencing.
- Once stabilized, F/U Dr. Krause for discussion of Tx CA Unknown Primary
- Brain MRI as OP
DVT PPx: SCD (patient declined subQ)
Diet: FLD
Code Status: Full
ACP
Patient consented to discuss, was with daughter (POA), time spent explanation of advance directives, changes in health status, patient�s health care wishes if the patient becomes unable to make health decisions, goals of care, code status, and
prognosis 'we wants everything'- 16 minutes
Time spent coordinating care, review of plan of care with resident, personally reviewed previous records in EMR, med rec, labs, radiology, d/w nursing, family total time documented is exclusive of any additional time listed that was spent in advance
care planning discussion -�52 minutes
Original Note:
Today's Communication/Plan
-
* Echo without hemodynamic instability.
* NPO after midnight.
* Endoscopy per GI tomorrow.
Assessment / Plan
Assessment / Plan
Sapna Gupta is a 64F PMHx CAD s/p PCIx2, hypertension, dyslipidemia, GERD, unspecified cancer of the neck (in process of evaluation) who presented to the ED with complaint of weakness, difficulty with PO intake (dysphagia and nausea) and
generalized pain. Recent dx of CA of unknown primary origin. PETCT with right sided neck CA, mets to bone and lymph nodes. She is admitted for failure to thrive and hypovolemia in the setting of decreased PO intake and possible esophageal
obstruction.
1. Hypovolemia (resolved)
- 82/66 with MADHURI on admission
- Given 1L NS Bolus in ED with improvement in BP to 102/60
- Given 1L NS Bolus on admission; continued on D5LR maintenance at 125ml/hr. Discontinued 12/21 with appropriate liquid diet intake.
- BPs stabilized, metoprolol restarted, continue to hold ARB/HCTZ for now.
2. Failure to Thrive
- Possibly 2/2 esophageal obstruction
- Not true dysphagia but patient is a poor historian.
- IVF with D5LR on admission; advanced to full liquid diet, patient tolerating well
- CT Chest/Abdomen (12/20): No clear evidence for an esophageal mass or extrinsic compression on the esophagus, other than possible compression from the large pericardial effusion.
- Discussed radiation therapy vs. PEG
- GI consult for alternative means of feed
- Appreciate GI recommendations
- Not in the CT read but her stomach appears either thickened or full of food
- Endoscopy per GI.
3. Moderate Pericardial Effusion
- new, as seen on PET/CT (12/19)
- CT Chest/Abdomen (12/20): Large pericardial effusion with continued increase in size compared to the PET/CT from 12/19/2024. New compared to the CT from 11/13/2024.
- Echo with moderate to large effusion; no hemodynamic instability
- Appreciate Cardiology Recs: no current plans for pericardiocentesis unless she becomes clinically unstable.
4. MADHURI (resolved)
- 1.6 on arrival, 0.6 today
- Likely secondary to dehydration
- Discontinued D5LR maintenance, patient now on full liquid diet, continue to monitor BMP and hydration status
- Hold HCTZ/Losartan
- Daily BMP
5. Leukocytosis/Thrombocytosis
- Resolved
6. Head/Neck CA
- Appreciate Oncology Recs: T/C Cancer type ID or molecular next gen sequencing.
- Once stabilized, F/U Dr. Krause for discussion of Tx CA Unknown Primary
- Patient scheduled for Brain MRI on Sunday ordered by Dr. Krause, see if radiology can still do while on admission.
7. Hypokalemia
- 3.4 this AM
- 40mEQ IV in AM, 40 mEQ IV in PM; may not tolerate large oral pill
- Monitor BMP, Mg
DVT PPx: SCD (patient declined subQ)
Diet: FLD
Code Status: Full
Anticipated Discharge: 24 - 48 hours
Subjective/Interval History
-
Date of Service: December 22, 2024
Stable. Tearful.
Objective Data
-
Labs:
Laboratory Results
12/22/24
06:47
WBC 9.5
Hgb 11.5 L
Hct 34.4 L
Plt Count 368
Sodium 139
Potassium 3.9
Chloride 110 H
Carbon Dioxide 18 L
BUN 14
Creatinine 0.6
Glucose 104 H
Calcium 8.7
Vital Signs:
Vital Signs
Temp Pulse Resp BP Pulse Ox
98.6 F 86 18 143/83 94
12/22/24 15:00 12/22/24 15:00 12/22/24 15:00 12/22/24 15:00 12/22/24 15:00
I&O
12/21/24 12/22/24 12/23/24
06:59 06:59 06:59
Intake Total 0 / 1820 1440 / 1440 960 / 960
Balance 1820 / 1820 1440 / 1440 960 / 960
Review of Systems
-
Constitutional: Reports No Symptoms
Respiratory: Reports No Symptoms
Cardiac: Reports No Symptoms
Abdomen/GI: Reports No Symptoms
Neuro: Reports No Symptoms
Physical Exam
-
General: No Apparent Distress, Comfortable and Conversant
HEENT: Normocephalic, Atraumatic and Anicteric
Respiratory: Clear to Auscultation and Non Labored Respirations; Negative Wheezes, Rales, Rhonchi or Crackles
Cardiac: Regular Rhythm, S1/S2 and Other (heart sounds clear (not muffled, not distant) to auscultation); Negative JVD
GI: Soft, Nontender, Nondistended, Normal Bowel Sounds and No Hepatosplenomegaly
Musculoskeletal: No Clubbing, No Cyanosis and No Edema
Skin: Warm and Dry
Neuro: Awake, Alert and Oriented
Psych: Calm
[2024-12-22 23:00] VITALS: BP 106/53
[2024-12-23] VITALS (9 sets, daily range): BP systolic 18–141; BP diastolic 55–78; BMI 30.3
[2024-12-23 05:41] LABS: Hematocrit 36.1 % (37.0-47.0); Hemoglobin 12.1 g/dL (12.0-16.0); Mean Corp Hgb Conc. 33.5 g/dL (33.0-37.0); Mean Corpuscular Volume 89.6 fL (81.0-99.0); Platelet Count 395 10^3/uL (130-400); Red Cell Dist. Width 13.1 % (11.5-14.5)
[2024-12-23 06:38] LABS: ALT (SGPT) 21 U/L (0-35); AST (SGOT) 39 U/L (14-36); Albumin 3.0 g/dl (3.5-5.0); Alkaline Phosphatase 267 U/L (38-126); Blood Urea Nitrogen 13 mg/dl (7-17); Calcium 8.1 mg/dl (8.4-10.2); Carbon Dioxide 20 mmol/L (22-30); Chloride 108 mmol/L (98-107); Estimated Creatinine Clearance 96 ml/min; Glucose 104 mg/dl (70-99); Potassium 3.7 mmol/L (3.5-5.1); Sodium 140 mmol/L (135-145); Total Protein 6.3 g/dl (6.3-8.2); eGFR > 60.00
[2024-12-23] MEDS: PEPCID 20 MG PO (08:25)
[2024-12-23] MEDS: TOPROL XL 50 MG PO (08:25)
[2024-12-23] MEDS: PROTONIX 40 MG PO (08:25)
--- NOTE | 2024-12-23 09:42 | W.PN.UPDATE ---
Update Note
Progress Note Update
EGD with large hiatal hernia, gastritis
dysphagia likely secondary to gerd/HH
plan;
head of the bed up and no reclining for 4 hours after meals
PPI bid
diet as tolerated
if further dysphagia would do outpatient manometry/pH study
will sign off call with questions
--- NOTE | 2024-12-23 09:52 | W.PN.HOSP.TC ---
Addendum entered and electronically signed by Jeffrey Gale MD 12/23/24 21:07:
Attending Addendum-
I saw and evaluated the patient. I reviewed the resident�s note and agree with findings and plan as documented in the resident�s note. Sub: patient seen post EGD with daughter present. complain of fatigue. No fevers chills, NV, loss of appetite,cp,
dysphagia, or palps. Full 10 point ROS reviewed and negative except as documented Exam: Vitals reviewed in chart GEN-NAD heart RRR no M/R/G lungs clear abd soft HEENT-right sided neck mass palpated Neuro MS 10/27 AAO x 3
Plan:
#Failure to Thrive/Gastritis
- CT Chest/Abdomen (12/20): No clear evidence for an esophageal mass or extrinsic compression on the esophagus, other than possible compression from the large pericardial effusion.
- ENDO 7/-5 cm hiatal hernia was present. Moderate inflammation characterized by congestion (edema) and nodularity was found in the gastric body and in the gastric antrum
-gastric bx taken
-cont IV PPI x 24 hours then change to PO in am
#Pericardial Effusion-Acute
- echo 12/22-EF 60-65, Moderate to large pericardial effusion without evidence of hemodynamic compromise. Pericardial effusion measured up to 3.1 cm inferolaterally
- no evidence of tamponade physiology
- appreciate Cardiology input- cont to follow no intervention required
- follow up echo in 2-3 months as OP
# Met Head/Neck CA
- Appreciate Oncology Recs: T/C Cancer type ID or molecular next gen sequencing.
- Once stabilized, F/U Dr. Krause for discussion of Tx CA Unknown Primary as OP
- Brain MRI as OP
DVT PPx: SCD (patient declined subQ)
Diet: FLD
Code Status: Full
Dispo DC in AM
Time spent coordinating care, review of plan of care with resident, personally reviewed records in EMR, med rec, consults, notes, labs, radiology, d/w nursing GI and daughter � 51 mins
Original Note:
Today's Communication/Plan
-
ADAT
Likely D/c home tomorrow
Assessment / Plan
Assessment / Plan
64F PMHx unspecified cancer of the neck (in process of evaluation) with mets on recent PET imaging (12/19/2024), CAD s/p PCIx2, hypertension, dyslipidemia, GERD, who presented to the ED with complaint of weakness, difficulty with PO intake (dysphagia
and nausea) and generalized pain.
#Failure to Thrive
- patient with decreased appetite and poor PO intake in the setting of newly diagnosed Stage IV Metastatic Ca of unknown primary
- IVF with D5LR on admission; advanced to full liquid diet, patient tolerating well
- CT Chest/Abdomen (12/20): No clear evidence for an esophageal mass or extrinsic compression on the esophagus, other than possible compression from the large pericardial effusion.
- Discussed radiation therapy vs. PEG -- hold off at this time until further workup with oncology
- GI following -- EGD 12/23 showing Large hiatal hernia w/ gastritis, presuming dysphagia is result of GERD/HH -- recommending HOB elevation, PPI BID, ADAT. GI Signing off
- Follow up with GI as OP for Biopsy results (may consider manometry/pH study if sx persist)
#Large Pericardial Effusion
- new, as seen on PET/CT (12/19)
- CT Chest/Abdomen (12/20): Large pericardial effusion with continued increase in size compared to the PET/CT from 12/19/2024. New compared to the CT from 11/13/2024.
- Echo with moderate to large effusion; no hemodynamic instability
- Cards following -- no plans for pericardiocentesis unless she becomes clinically unstable
- repeat Echo 2-3 weeks
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
- Follow up with Dr. Krause on 12/30 for further management and treatment
- Patient scheduled for Brain MRI on Friday 12/29
#MADHURI, 2* dehydration (resolved)
- 1.6 on arrival, normalized now
- D/c IVF
- c/t Hold HCTZ/Losartan
- Daily BMP
#Hypovolemia (resolved)
- / with MADHURI on admission
- Given 1L NS Bolus in ED with improvement in BP to 102/60
- Given 1L NS Bolus on admission; continued on D5LR maintenance at 125ml/hr. Discontinued 12/21 with appropriate liquid diet intake.
- BPs stabilized, metoprolol restarted, continue to hold ARB/HCTZ for now
#Leukocytosis/Thrombocytosis (resolved)
#Hypokalemia
- 3.7 am
- monitor with BMP
DVT PPx: SCD (patient declined subQ)
Diet: Regular Diet
Code Status: Full Code
Anticipated Discharge: Within 24 hours
Subjective/Interval History
-
Date of Service: December 23, 2024
Feels well this morning. No acute complaints.
Objective Data
-
Labs:
Laboratory Results
12/23/24
05:22
WBC 11.1 H
Hgb 12.1
Hct 36.1 L
Plt Count 395
Sodium 140
Potassium 3.7
Chloride 108 H
Carbon Dioxide 20 L
BUN 13
Creatinine 0.6
Glucose 104 H
Calcium 8.1 L
Total Bilirubin 0.6
AST 39 H
ALT 21
Alkaline Phosphatase 267 H
Vital Signs:
Vital Signs
Temp Pulse Resp BP Pulse Ox
98.4 F 76 18 129/57 94
12/23/24 09:50 12/23/24 09:50 12/23/24 09:50 12/23/24 09:50 12/23/24 09:50
I&O
12/22/24 12/23/24 12/24/24
06:59 06:59 06:59
Intake Total 1440 / 1440 1080 / 1080
Balance 1440 / 1440 1080 / 1080
Review of Systems
-
All other systems: Reviewed and negative
Constitutional: Reports No Symptoms
EENT: Reports No Symptoms Reported
Respiratory: Reports No Symptoms
Cardiac: Reports No Symptoms
Abdomen/GI: Reports No Symptoms
Genitourinary: Reports No Symptoms
Musculoskeletal: Reports No Symptoms
Skin: Reports No Symptoms
Neuro: Reports No Symptoms
Endocrine: Reports No Symptoms
Physical Exam
-
General: Well Developed, Well Nourished, No Apparent Distress, Comfortable and Conversant
HEENT: Normocephalic, Atraumatic, Moist Mucous Membranes, Anicteric, [place] Conjunctivae, PERRLA, Nose Appears Normal and Ears Appear Normal
Respiratory: Clear to Auscultation and Non Labored Respirations; Negative Wheezes, Rales or Rhonchi
Cardiac: Regular Rhythm and S1/S2; Negative Murmur or Rub
GI: Soft, Nontender, Nondistended and Normal Bowel Sounds
Genito-urinary: No Costovertebral Tender
Musculoskeletal: No Clubbing, No Cyanosis and No Edema
Skin: Warm and Dry
Neuro: AO x 3
Hematologic / Lymphatic: No Lymphadenopathy
Psych: Calm
[2024-12-23] MEDS: PROTONIX IV 40 MG IV ×2 (10:36→21:22)
[2024-12-23] MEDS: NSS (PRESERVATIVE FREE) 10 ML IV ×2 (10:36→21:22)
--- NOTE | 2024-12-23 12:09 | VATNOTE ---
During routine assessment, Pt states she is having exquisite pain at IV site. Pt also states site of R arm infiltrate is very tender. Bruising noted to site of R arm infiltrate. No swelling or redness noted. Offered to apply heat, pt declined heat
application, education provided, pt continues to refuse treatment. Checked with PCN to see if pt still needs IV site, PCN checked in with GI who wants the patient to get IV protonix for now rather than PO. Informed pt that I needed to take out old
IV and replace it with a new IV if the old one hurt. Pt states 'maybe it doesn't hurt so much.' This RN was able to palpate without any visible signs of pain and IV was flushed without any complaint of pain. Pt declining IV restart at this time.
--- NOTE | 2024-12-23 14:25 | W.PN.ONC2 ---
Today's Communication / Plan
-
Pt has OP follow up with Dr. Krause 12/30 for further malignancy management
on PPI, f/u gastric biopsy. Will need OP follow up with GI if dyphagia persists for consideration of manometry/pH study
Will need close cardiology outpatient follow up for continued pericardial effusion management
Daughter at bedside provided updates and questions answered
Impression
Impression
Metastatic cancer unknown primary involving LN and osseous lesions -Immunohistochemical�Stains PAX8�and�p16�are�negative�-�p53�is�positive
dysphagia secondary to GERD/HH/gastritis seen on EGD 12/23 on ppi, biopsy path pending
pericardial effusion w/o tamponade on Echo
cervical cancer status post hysterectomy
Plan
Plan
T/C outpatient Cancer type ID or molecular next gen sequencing.
cardiology, holding off on pericardiocentesis unless she became clinically unstable.
Once stabilized, F/U Dr. Krause for discussion of Tx CA Unk Prim
Subjective/Objective
Subjective
denies pain, n/v or bleeding
eating cantaloupe without difficulty
Vital Signs:
Vital Signs
Temp Pulse Resp BP Pulse Ox
98.4 F 76 18 129/57 94
12/23/24 09:57 12/23/24 09:57 12/23/24 09:57 12/23/24 09:57 12/23/24 09:57
Lab Results:
Laboratory Data
WBC 11.1 10^3/uL (4.8-10.8) H 12/23/24 05:22
Hgb 12.1 g/dL (12.0-16.0) 12/23/24 05:22
Plt Count 395 10^3/uL (130-400) 12/23/24 05:22
eGFR > 60.00 12/23/24 05:22
Physical Exam
HEENT: Moist Mucous Membranes; No Jaundice
Cardiology: Normal Sinus Rhythm
Pulmonary: Other (unlabored)
GI: Soft
Extremities: Pulses Present; No Edema
Neuro: Non Focal
--- NOTE | 2024-12-23 16:29 | W.PN.UPDATE ---
Update Note
Progress Note Update
Patient admitted with generalized weakness on 12/19/2024 and then diagnosed with metastatic cancer unknown primary involving lymph node and osseous lesions. Cardiology consulted for moderate to large pericardial effusion seen on echo 12/22/2024.
There is no evidence of hemodynamic compromise and pericardial effusion measured up to 3.1 cm inferolaterally. When compared to the last known echo from 05/31/2023 the effusion was new. Overall EF was preserved. Patient was given cardiac clearance
to continue her malignancy workup and no planned intervention on her pericardial effusion, but follow-up recommended. Patient previously followed with Dr. Neri at [facility], but all of her oncology workup thus far has been through the [facility]
system, so offered patient the option of cardiology follow-up here or at [facility] and patient asks for [facility]. Would recommend repeat echo in 2 to 3 weeks and cardiology office visit to follow. Will call Dr. Neri's office in the morning
and attempt to facilitate.
[2024-12-23] MEDS: CRESTOR 10 MG PO (17:01)
[2024-12-23] MEDS: ZETIA 10 MG PO (17:01)
[2024-12-24 00:18] VITALS: BP 132/99
[2024-12-24 06:00] VITALS: BMI 29.9
[2024-12-24 07:00] VITALS: BP 112/50
[2024-12-24] MEDS: NSS (PRESERVATIVE FREE) 10 ML IV ×2 (09:14→20:14)
[2024-12-24] MEDS: TOPROL XL 50 MG PO (09:14)
[2024-12-24] MEDS: PROTONIX IV 40 MG IV ×2 (09:14→20:14)
--- NOTE | 2024-12-24 09:50 | W.PN.HOSP.TC ---
Addendum entered and electronically signed by Jeffrey Gale MD 12/24/24 22:18:
Attending Addendum-
I saw and evaluated the patient. I reviewed the resident�s note and agree with findings and plan as documented in the resident�s note. Sub: had low grade temps overnight. seen post CXR. Feels fatigued but improved. denies SOB. No chills, NV, loss of
appetite,cp, dysphagia, or palps. Full 10 point ROS reviewed and negative except as documented Exam: Vitals reviewed in chart GEN-NAD heart RRR no M/R/G lungs decreased BS @ bases abd soft HEENT-right sided neck mass palpated Neuro MS 10/27 AAO x 3
Plan:
#Failure to Thrive/Gastritis
- CT Chest/Abdomen (12/20): No clear evidence for an esophageal mass or extrinsic compression on the esophagus, other than possible compression from the large pericardial effusion.
- ENDO 7/-5 cm hiatal hernia was present. Moderate inflammation characterized by congestion (edema) and nodularity was found in the gastric body and in the gastric antrum
-gastric bx taken
-cont IV PPI change to PO on DC
# Low grade temps with leukocytosis
- check CXR and Urine
- secondary to atelectasis?- start IS
- ctm repeat CBC in am
#Pericardial Effusion-Acute
- echo 12/22-EF 60-65, Moderate to large pericardial effusion without evidence of hemodynamic compromise. Pericardial effusion measured up to 3.1 cm inferolaterally
- no evidence of tamponade physiology
- appreciate Cardiology input- cont to follow no intervention required
- follow up echo in 2-3 weeks as OP
# Met Head/Neck CA
- Appreciate Oncology Recs: T/C Cancer type ID or molecular next gen sequencing.
- Once stabilized, F/U Dr. Krause for discussion of Tx CA Unknown Primary as OP
- Brain MRI as OP
DVT PPx: SCD
Diet: FLD
Code Status: Full
Dispo DC in AM
Time spent coordinating care, review of plan of care with resident, personally reviewed records in EMR, med rec, consults, notes, labs, radiology, d/w nursing GI heme � 50 mins
Original Note:
Today's Communication/Plan
-
incentive spirometry for cough
c/w PPID/c tomorrow with specialist follow up (oncology/GI/Cards)
Assessment / Plan
Assessment / Plan
64F PMHx unspecified cancer of the neck (in process of evaluation) with mets on recent PET imaging (12/19/2024), CAD s/p PCIx2, hypertension, dyslipidemia, GERD, who presented to the ED with complaint of weakness, difficulty with PO intake (dysphagia
and nausea) and generalized pain.
#Leukocytosis
#Cough
- symptoms of cough and leukocytosis with general feeling of being 'not well'
- CXR demonstrative of probable LLL atelectasis vs. pneumonia
- cough more than likely related to significant GERD w/o significant sputum production, SOB or hypoxia
- UA done, positive bacteriuria w/o urinary sx or LE/Nitrites -- most likely not clean catch
- Will order incentive spirometry for cough/atelectasis, suspicion for pneumonia/infection low at this time
#Failure to Thrive
- patient with decreased appetite and poor PO intake in the setting of newly diagnosed Stage IV Metastatic Ca of unknown primary
- IVF with D5LR on admission; advanced to full liquid diet, patient tolerating well
- CT Chest/Abdomen (12/20): No clear evidence for an esophageal mass or extrinsic compression on the esophagus, other than possible compression from the large pericardial effusion.
- Discussed radiation therapy vs. PEG -- hold off at this time until further workup with oncology
- GI following -- EGD 12/23 showing Large hiatal hernia w/ gastritis, presuming dysphagia is result of GERD/HH -- recommending HOB elevation, PPI BID, ADAT. GI Signing off
- Follow up with GI as OP for Biopsy results (may consider manometry/pH study if sx persist)
#Large Pericardial Effusion
- new, as seen on PET/CT (12/19)
- CT Chest/Abdomen (12/20): Large pericardial effusion with continued increase in size compared to the PET/CT from 12/19/2024. New compared to the CT from 11/13/2024.
- Echo with moderate to large effusion; no hemodynamic instability
- Cards following -- no plans for pericardiocentesis unless she becomes clinically unstable
- repeat Echo 2-3 weeks
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
- Follow up with Dr. Krause on 12/30 for further management and treatment
- Patient scheduled for Brain MRI on Friday 12/29
#MADHURI, 2* dehydration (resolved)
- 1.6 on arrival, normalized now
- D/c IVF
- c/t Hold HCTZ/Losartan
- Daily BMP
#Hypovolemia (resolved)
- 82/66 with MADHURI on admission
- Given 1L NS Bolus in ED with improvement in BP to 102/60
- Given 1L NS Bolus on admission; continued on D5LR maintenance at 125ml/hr. Discontinued 12/21 with appropriate liquid diet intake.
- BPs stabilized, metoprolol restarted, continue to hold ARB/HCTZ for now
#Leukocytosis/Thrombocytosis (resolved)
#Hypokalemia
- 3.7 am
- monitor with BMP
DVT PPx: SCD (patient declined subQ)
Diet: Regular Diet
Code Status: Full Code
Anticipated Discharge: Today
Subjective/Interval History
-
Date of Service: December 24, 2024
Feels unwell this morning, complaining of cough with sputum/phlegm as well as neck pain. No new subjective fevers or chills.
Objective Data
-
Labs:
Laboratory Results
12/24/24
09:48
WBC Pending
Hgb Pending
Hct Pending
Plt Count Pending
Sodium Pending
Potassium Pending
Chloride Pending
Carbon Dioxide Pending
BUN Pending
Creatinine Pending
Glucose Pending
Calcium Pending
Total Bilirubin Pending
AST Pending
ALT Pending
Alkaline Phosphatase Pending
Vital Signs:
Vital Signs
Temp Pulse Resp BP Pulse Ox
99.1 F 96 17 112/50 94
12/24/24 07:00 12/24/24 09:14 12/24/24 07:00 12/24/24 09:14 12/24/24 07:00
I&O
12/23/24 12/24/24 12/25/24
06:59 06:59 06:59
Intake Total 1080 / 1080 960 / 960
Balance 1080 / 1080 960 / 960
Review of Systems
-
All other systems: Reviewed and negative
Constitutional: Reports No Symptoms
EENT: Reports Other (neck pain)
Respiratory: Reports No Symptoms
Cardiac: Reports No Symptoms
Abdomen/GI: Reports GERD
Genitourinary: Reports No Symptoms
Musculoskeletal: Reports No Symptoms
Skin: Reports No Symptoms
Neuro: Reports No Symptoms
Endocrine: Reports No Symptoms
Hematologic / Lymphatic: Reports No Symptoms
Allergy / Immunology: Reports No Symptoms
Physical Exam
-
General: Well Developed, Well Nourished, No Apparent Distress and Comfortable
HEENT: Normocephalic, Atraumatic, Moist Mucous Membranes, Anicteric, [place] Conjunctivae, Nose Appears Normal, Ears Appear Normal and Neck Masses (Right sided submandibular neck mass unchanged from prior, tender to palpation)
Respiratory: Clear to Auscultation; Negative Wheezes, Rales or Rhonchi
Cardiac: Regular Rhythm and S1/S2; Negative Murmur, Rub or Tachycardic
GI: Soft, Nontender, Nondistended and Normal Bowel Sounds
Genito-urinary: No Costovertebral Tender and Deferred by me
Musculoskeletal: No Clubbing, No Cyanosis and No Edema
Skin: Warm and Dry
Neuro: AO x 3
[2024-12-24 09:55] LABS: Hematocrit 36.8 % (37.0-47.0); Hemoglobin 12.4 g/dL (12.0-16.0); Mean Corp Hgb Conc. 33.7 g/dL (33.0-37.0); Mean Corpuscular Volume 88.7 fL (81.0-99.0); Platelet Count 420 10^3/uL (130-400); Red Cell Dist. Width 13.3 % (11.5-14.5)
--- NOTE | 2024-12-24 09:59 | W.PN.ONC2 ---
Documented by User: CHARLES Ortez 12/24/24 12:42
Today's Communication / Plan
-
Discharge planning
Impression
Impression
Metastatic cancer unknown primary involving LN and osseous lesions -Immunohistochemical�Stains PAX8�and�p16�are�negative�-�p53�is�positive
dysphagia secondary to GERD/HH/gastritis seen on EGD 12/23 on ppi, biopsy path pending
pericardial effusion w/o tamponade on Echo
cervical cancer status post hysterectomy
Plan
Plan
T/C outpatient Cancer type ID or molecular next gen sequencing.
cardiology, holding off on pericardiocentesis unless she became clinically unstable.
Once stabilized, F/U Dr. Krause for discussion of Tx CA Unk Prim
Subjective/Objective
Subjective
no new complaints
Vital Signs:
Vital Signs
Temp Pulse Resp BP Pulse Ox
99.1 F 96 17 112/50 94
12/24/24 07:00 12/24/24 09:14 12/24/24 07:00 12/24/24 09:14 12/24/24 07:00
Lab Results:
Laboratory Data
WBC 13.0 10^3/uL (4.8-10.8) H 12/24/24 09:48
Hgb 12.4 g/dL (12.0-16.0) 12/24/24 09:48
Plt Count 420 10^3/uL (130-400) H 12/24/24 09:48
eGFR > 60.00 12/23/24 05:22
Physical Exam
HEENT: Moist Mucous Membranes; No Jaundice
Cardiology: Normal Sinus Rhythm
Pulmonary: Other (unlabored)
GI: Soft
Extremities: Pulses Present; No Edema
Neuro: Non Focal

Documented by User: Malcolm Krause MD 12/24/24 13:35
Plan
Plan
T/C outpatient Cancer type ID or molecular next gen sequencing.
cardiology, holding off on pericardiocentesis unless she became clinically unstable.
Once stabilized, F/U Dr. Krause for discussion of Tx CA Unk Prim
Patient seen and evaluated and agree w/ NUCLEAR MEDICINE OFFICER note and plan as outline
-large right neck palpable mass s/p biopsy w/ pathology c/w carcinoma of unknown primary - p53 positive
-s/p laryngoscopy w/ Dr. Christianson in office on 12/15 - w/ no definitive oral, larynx or hypopharynx abnormalities appreciated
-PET/CT 12/19 w/ diffuse metastatic disease - adenopathy and bone metastasis w/ focal increased activity along posterior left vocal cord
-EGD - 12/23 at [place] w/ no definitive GI lesions - gastritis appreciated w/ biopsies taken
-discussed case w/ Dr. Christianson, ENT - a second laryngoscopy in OR could be considered to further evaluated the left vocal cord region vs. additional IR biopsy of node
-will discuss w/ pathologist - sending additional pathology studies - potentially Cancer Type ID w/ reflex to NeoType panel
Will continue to follow with you.
[2024-12-24 10:09] LABS: ALT (SGPT) 22 U/L (0-35); AST (SGOT) 37 U/L (14-36); Albumin 2.9 g/dl (3.5-5.0); Alkaline Phosphatase 295 U/L (38-126); Blood Urea Nitrogen 13 mg/dl (7-17); Calcium 8.1 mg/dl (8.4-10.2); Carbon Dioxide 21 mmol/L (22-30); Chloride 108 mmol/L (98-107); Estimated Creatinine Clearance 82 ml/min; Glucose 126 mg/dl (70-99); Potassium 3.9 mmol/L (3.5-5.1); Sodium 137 mmol/L (135-145); Total Protein 6.3 g/dl (6.3-8.2); eGFR > 60.00
[2024-12-24 11:44] LABS: Urine Character Slightly Cloudy (Clear)
[2024-12-24 12:10] LABS: Urine Red Blood Cell 0-2 /HPF (0-2); Urine White Cell 0-2 /HPF (0-5)
[2024-12-24 15:00] VITALS: BP 128/65
[2024-12-24 15:08] VITALS: BMI 29.9
--- NOTE | 2024-12-24 15:40 | VATNOTE ---
During routine assessment, bruising noted at site of R arm infiltration. Area is tender to palpation. Offered and applied heat to area. Provided with teaching regarding post infiltration treatment, verbalizes understanding. Will continue to monitor.
[2024-12-24] MEDS: CRESTOR 10 MG PO (17:08)
[2024-12-24] MEDS: ZETIA 10 MG PO (17:08)
[2024-12-24 23:15] VITALS: BP 131/45
[2024-12-25 06:00] VITALS: BMI 29.8
[2024-12-25 06:49] LABS: Hematocrit 38.8 % (37.0-47.0); Hemoglobin 13.2 g/dL (12.0-16.0); Mean Corp Hgb Conc. 34.0 g/dL (33.0-37.0); Mean Corpuscular Volume 89.8 fL (81.0-99.0); Nucleated Red Blood Cells % 0 %; Platelet Count 528 10^3/uL (130-400); Red Cell Dist. Width 13.4 % (11.5-14.5)
[2024-12-25 07:14] LABS: Blood Urea Nitrogen 15 mg/dl (7-17); Calcium 8.5 mg/dl (8.4-10.2); Carbon Dioxide 22 mmol/L (22-30); Chloride 105 mmol/L (98-107); Estimated Creatinine Clearance 71 ml/min; Glucose 110 mg/dl (70-99); Potassium 4.3 mmol/L (3.5-5.1); Sodium 138 mmol/L (135-145); eGFR > 60.00
--- NOTE | 2024-12-25 07:16 | W.PN.HOSP.TC ---
Addendum entered and electronically signed by Jeffrey Gale MD 12/25/24 20:34:
Attending Addendum-
I saw and evaluated the patient. I reviewed the resident�s note and agree with findings and plan as documented in the resident�s note. Sub: PAD TUFTER called by nursing this AM due to tachycardia CP and hypotnesion. patient found to be in SVT rates over
200 and diaphoretic feeling dizzy. Was given adenosine with resolve. [place] much better after resolution. 'That felt weird doc i felt like i was going to !' Full 10 point ROS reviewed and negative except as documented Exam: Vitals reviewed in
chart GEN-NAD heart RRR no M/R/G lungs decreased BS @ bases abd soft HEENT-right sided neck mass palpated Neuro MS 10/27 AAO x 3
Plan:
# SVT
- PAD TUFTER 12/25
- possibly AVNRT
- stat EKG ordered and reviewed
- vagal maneuvers attempted without success
- o2 applied, IVF x 1 bolus given
- BMP and trop ordered- WNL
- adenosine 6mg given with resolution
- restart metoprolol xl 25 PO BID
- d/w cards
- place on tele
#Failure to Thrive/Gastritis
- CT Chest/Abdomen (12/20): No clear evidence for an esophageal mass or extrinsic compression on the esophagus, other than possible compression from the large pericardial effusion.
- ENDO 12/23-5 cm hiatal hernia was present. Moderate inflammation characterized by congestion (edema) and nodularity was found in the gastric body and in the gastric antrum
-gastric bx taken
-cont IV PPI change to PO on DC
# Low grade temps with leukocytosis
- check CXR and Urine
- secondary to atelectasis?- start IS
- ctm repeat CBC in am
#Pericardial Effusion-Acute
- echo 12/22-EF 60-65, Moderate to large pericardial effusion without evidence of hemodynamic compromise. Pericardial effusion measured up to 3.1 cm inferolaterally
- no evidence of tamponade physiology
- appreciate Cardiology input- cont to follow no intervention required
- follow up echo in 2-3 weeks as OP
# Met Head/Neck CA
- Appreciate Oncology Recs: T/C Cancer type ID or molecular next gen sequencing.
- Once stabilized, F/U Dr. Krause for discussion of Tx CA Unknown Primary as OP
- Brain MRI as OP
DVT PPx: SCD
Diet: FLD
Code Status: Full
Dispo DC in AM if able
CC Note
Due to a high probability of clinically significant, life-threatening deterioration, the patient required a high level of preparedness to intervene emergently. I personally spent this critical care time directly and personally managing the patient.
This critical care time included obtaining a history; examining the patient; ordering and review of studies and STAT labs; arranging urgent treatment with development of a management plan; evaluation of patient's response to treatment; reassessment;
and, discussions with other providers.
This critical care time was performed to assess and manage the high probability of imminent, life-threatening deterioration that could result in multi-organ failure. It was exclusive of separately billable procedures and treating other patients and
teaching time. See same day update note for additional details. Was present the entire time with resident.
Total critical care time: Approximately 32 minutes
Original Note:
Today's Communication/Plan
-
d/c Today
Follow up with GI, Oncology, Cardiology as outpatient
Assessment / Plan
Assessment / Plan
64F PMHx unspecified cancer of the neck (in process of evaluation) with mets on recent PET imaging (12/19/2024), CAD s/p PCIx2, hypertension, dyslipidemia, GERD, who presented to the ED with complaint of weakness, difficulty with PO intake (dysphagia
and nausea) and generalized pain.
#Leukocytosis (with increase in Monocytes, Granulocytes and Neutrophils)
#Thrombocytosis
#Cough
- symptoms of cough and leukocytosis with general feeling of being 'not well'
- CXR demonstrative of probable LLL atelectasis vs. pneumonia
- cough more than likely related to significant GERD w/o significant sputum production, SOB or hypoxia
- UA done, positive bacteriuria w/o urinary sx or LE/Nitrites -- most likely not clean catch
- Will order incentive spirometry for cough/atelectasis, suspicion for pneumonia/infection low at this time
- Given non-suggestive workup, lack of fever/sx and presence of active metastatic cancer, Leukocytosis/thrombocytosis most likely consequence of metastatic disease rather than active infection. Strongly encourage her to maintain follow up with
Oncology as outpatient.
#Failure to Thrive
- patient with decreased appetite and poor PO intake in the setting of newly diagnosed Stage IV Metastatic Ca of unknown primary
- IVF with D5LR on admission; advanced to full liquid diet, patient tolerating well
- CT Chest/Abdomen (12/20): No clear evidence for an esophageal mass or extrinsic compression on the esophagus, other than possible compression from the large pericardial effusion.
- Discussed radiation therapy vs. PEG -- hold off at this time until further workup with oncology
- GI following -- EGD 12/23 showing Large hiatal hernia w/ gastritis, presuming dysphagia is result of GERD/HH -- recommending HOB elevation, PPI BID, ADAT. GI Signing off
- Follow up with GI as OP for Biopsy results (may consider manometry/pH study if sx persist)
#Large Pericardial Effusion
- new, as seen on PET/CT (12/19)
- CT Chest/Abdomen (12/20): Large pericardial effusion with continued increase in size compared to the PET/CT from 12/19/2024. New compared to the CT from 11/13/2024.
- Echo with moderate to large effusion; no hemodynamic instability
- Cards following -- no plans for pericardiocentesis unless she becomes clinically unstable
- repeat Echo 2-3 weeks as OP
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
- Follow up with Dr. Krause on 12/30 for further management and treatment
- Patient scheduled for Brain MRI on Friday 12/29
#MADHURI, 2* dehydration (resolved)
- 1.6 on arrival, normalized now
- D/c IVF
- can resume HCTZ/ARB
- Daily BMP
#Hypovolemia (resolved)
- 82/66 with MADHURI on admission
- Given 1L NS Bolus in ED with improvement in BP to 102/60
- Given 1L NS Bolus on admission; continued on D5LR maintenance at 125ml/hr. Discontinued 12/21 with appropriate liquid diet intake.
- BPs stabilized, metoprolol restarted, continue to hold ARB/HCTZ for now
#Hypokalemia
- 3.7 am
- monitor with BMP
DVT PPx: SCD (patient declined subQ)
Diet: Regular Diet
Code Status: Full Code
Anticipated Discharge: Today
Subjective/Interval History
-
Date of Service: December 25, 2024
Feeling tired this morning but otherwise well. She is eating a fair amount of her daily meals. She is still experiencing GERD symptoms, unchanged with PPI.
Objective Data
-
Labs:
Laboratory Results
12/25/24
05:57
WBC 13.1 H
Hgb 13.2
Hct 38.8
Plt Count 528 H D
Sodium 138
Potassium 4.3
Chloride 105
Carbon Dioxide 22
BUN 15
Creatinine 0.8
Glucose 110 H
Calcium 8.5
Vital Signs:
Vital Signs
Temp Pulse Resp BP Pulse Ox
98.4 F 51 18 131/45 93
12/24/24 23:15 12/24/24 23:15 12/24/24 23:15 12/24/24 23:15 12/24/24 23:15
I&O
12/24/24 12/25/24 12/26/24
06:59 06:59 06:59
Intake Total 960 / 960 600 / 600
Balance 960 / 960 600 / 600
Review of Systems
-
History Source: Patient
All other systems: Reviewed and negative
Constitutional: Reports Fatigue
EENT: Reports Other (neck swelling)
Respiratory: Reports No Symptoms
Cardiac: Reports No Symptoms
Abdomen/GI: Reports GERD and Indigestion
Breast: Reports No Symptoms
Genitourinary: Reports No Symptoms
Musculoskeletal: Reports No Symptoms
Skin: Reports No Symptoms
Neuro: Reports No Symptoms
Endocrine: Reports No Symptoms
Hematologic / Lymphatic: Reports No Symptoms
Physical Exam
-
General: Well Developed, Well Nourished, No Apparent Distress and Comfortable
HEENT: Normocephalic, Atraumatic, Moist Mucous Membranes, Anicteric, [place] Conjunctivae, No Ptosis, PERRLA, Nose Appears Normal, Ears Appear Normal and Other (R submandibular neck mass, unchanged, tender to palpation)
Respiratory: Clear to Auscultation; Negative Wheezes, Rales or Rhonchi
Cardiac: Regular Rhythm and S1/S2; Negative Murmur or Rub
Breast: Deferred by me
GI: Soft, Nontender, Nondistended and Normal Bowel Sounds
Genito-urinary: Costovertebral Angle Tend
Musculoskeletal: No Clubbing, No Cyanosis and No Edema
Skin: Warm and Dry
Neuro: AO x 3
Psych: Calm
[2024-12-25 07:26] VITALS: BP 123/54
[2024-12-25] MEDS: NSS (PRESERVATIVE FREE) 10 ML IV ×2 (09:00→21:14)
[2024-12-25] MEDS: PROTONIX IV 40 MG IV ×2 (09:00→21:14)
[2024-12-25] MEDS: TOPROL XL PO (09:01)
[2024-12-25] MEDS: TYLENOL 650 MG PO (09:08)
[2024-12-25 11:48] LABS: Glucose - Point of Care 120 mg/dl (70-99)
[2024-12-25] MEDS: ZOFRAN 4 MG IV (12:09)
--- NOTE | 2024-12-25 12:10 | W.PN.UPDATE ---
Update Note
Progress Note Update
Patient began having chest pain and discomfort around 11:30AM. ECG was done which showed SVT with HR in the 200s. She then became diaphoretic. PHARMACEUTICAL ENGINEER was called. On arrival her HR was in the 200s, pressures were 90/60s, patient was awake and able to
speak but in distress. She was started on Oxygen nasal canula. We attempted vagal maneuvers which did not convert. She felt nauseous and gagged a few times but did not vomit. 6mg of adenosine was given with a NS flush and 250ml NS bolus was started.
After 10-20 seconds she converted to sinus tachycardia. Repeat BP was 130/90. She remained conscious the entire time. IV Zofran was ordered for persistent nausea. Tele was ordered. Troponin and CMP drawn. She will not be discharged today.
[2024-12-25 12:27] LABS: ALT (SGPT) 21 U/L (0-35); AST (SGOT) 36 U/L (14-36); Albumin 3.1 g/dl (3.5-5.0); Alkaline Phosphatase 313 U/L (38-126); Blood Urea Nitrogen 17 mg/dl (7-17); Calcium 8.7 mg/dl (8.4-10.2); Carbon Dioxide 17 mmol/L (22-30); Chloride 109 mmol/L (98-107); Estimated Creatinine Clearance 81 ml/min; Glucose 127 mg/dl (70-99); Potassium 3.8 mmol/L (3.5-5.1); Sodium 137 mmol/L (135-145); Total Protein 6.7 g/dl (6.3-8.2); eGFR > 60.00
[2024-12-25 12:38] LABS: Troponin I < 0.012 ng/ml
[2024-12-25 13:57] VITALS: BP 106/68
--- NOTE | 2024-12-25 14:06 | W.PN.CARDCBS ---
Addendum entered and electronically signed by Issa Sauceda MD 12/25/24 15:56:
Patient seen, interviewed and examined by me.
Well-appearing, no acute distress
Regular rate and rhythm with normal S1 and S2, no S3 no S4. There is a grade 1/6 apical holosystolic murmur and no rubs. PMI is normally placed.
Lungs are clear to auscultation bilaterally without wheezes rales or rhonchi.
Abdomen soft nontender nondistended with normoactive bowel sounds
Extremities show trace pretibial edema bilaterally no clubbing or cyanosis.
I reviewed telemetry and available ECGs. She is having periods of PSVT. 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 She is symptomatic with feeling uncomfortable heart racing sensation.
She tells me that she has not sure if she has had the previous diagnosis. She is not sure why she was previously placed on Toprol-XL.
Of note, Toprol-XL was held this morning because of resting sinus bradycardia of 55 bpm, asymptomatic.
I spoke to the patient and her daughter as well as nursing at the bedside and I recommended resuming beta-johan therapy. We will resume Toprol-XL and split the dose to 25 mg twice daily. In the meantime we will use short acting oral metoprolol
as well.
If she continues to have symptomatic episodes of PSVT we could consider further up titration of beta-johan and/or adding digoxin for acute management. In the long run she may do best with EP study and ablation.
All of their questions answered.
Original Note:
Today's Communication / Plan
-
SVT noted this afternoon
AM metoprolol held, would resume Toprol at 25mg BID
Follow on telemetry overnight
Arranged for follow up echo as OP, however if decompensation noted, would check sooner.
Impression / Plan
-
PCP: Dr. Calabrese
Bevel Operator: Dr. Neri ([facility])
Impression:
Advanced malignancy of head and neck with marked lymphadenopathy along with extensive osseous lesions
Moderate pericardial effusion
Mild hypotension and sinus tachycardia
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
Dehydration
CAD
h/o PCI 2013
Leukocytosis and thrombocytosis
Acute renal failure creatinine of 1.6 with elevated alkaline phosphatase
Hypertension
Hyperlipidemia
PET CT scan 12/19/2024 with numerous scattered FDG lesions in nearly all of the axial skeleton including ribs, humerus, sternum, pelvis, and enlarged lymph nodes in the mediastinum and head and neck area. Moderate pericardial effusion
Echo 05/31/2023: EF 55%, grade I diastolic dysfunction, mild MR, trace TR
Echo 12/22/2024: EF 60-65%, aortic sclerosis without stenosis, trace AR, moderate to large pericardial effusion without evidence of hemodynamic compromise. Pericardial effusion measures up to 3.1 cm inferolaterally
Plan:
-Presented with SOB and failure to thrive. Noted to be hypotensive and tachycardic in ER resulting in admission.
-Patient has suspected advanced cancer of head and neck. Unclear primary. Workup in process. OP PET/CT 12/19 which noted numerous scattered FDG osseous lesions as well as lymphadenopathy and moderate pericardial effusion. CT of chest/abdomen 12/20
showed large pericardial effusion with lymphadenopathy, multifocal osteoblastic metastases, and large hiatal hernia.
-Echo 12/22 confirmed moderate to large pericardial effusion without evidence of hemodynamic compromise. Patient has been clinically stable and there is no plan for pericardiocentesis currently.
-She is arranged for OP follow up echo 01/06.
-12/25 prior to discharge, was noted to go into SVT w/ HR in the 200s. [place] poorly with nausea, lightheadedness, and chest pressure w/ this. Did not break w/ vagal maneuvers, so given 6mg of adenosine and broke into SR.
-Remains in SR at this time on telemetry. HR overall stable. On review of MAR, patient did not receive AM metoprolol dose 12/25 due to bradycardia w/ HR in mid 50s.
-BP has been stable. Metoprolol changed to 25mg BID w/ now dose.
-Plavix held this admission for EGD due to dysphagia. EGD with large hiatal hernia and gastritis. Now on PPI.
-Given h/o CAD w/ prior PCI, would start aspirin 81mg daily.
-OP losartan and HCTZ have been on hold due to hypotension on arrival. Creat has normalized
-Continue to follow on telemetry overnight.
HPI: 64-year-old female with past medical history of coronary artery disease status post PCI x 2, hypertension, hyperlipidemia GERD with advanced cervical mass/lymphadenopathy and likely cancer of unknown etiology presents to [facility] with
fatigue, shortness of breath, failure to thrive, and weight loss. She presented for an elective PET CT scan and was found to have a moderate pericardial effusion. She has not been able to eat or drink for weeks as she is having difficulty
swallowing. She denies any chest pains. She does have significant fatigue. Her breathing has been worse recently. She denies any lower extremity edema orthopnea. She has no palpitations or syncope. In the emergency room she was found to be
hypotensive with systolic blood pressures in the 90 range and tachycardic.
Progress Note - Bevel Operator
Subjective
Date of Service: December 25, 2024
[place] poorly w/ SVT, feeling much better now in SR with HR in 50s.
Objective
Labs:
12/25/24 05:57
12/25/24 12:11
Labs
Hgb 13.2 g/dL (12.0-16.0) 12/25/24 05:57
Hct 38.8 % (37.0-47.0) 12/25/24 05:57
Plt Count 528 10^3/uL (130-400) H D 12/25/24 05:57
Sodium 137 mmol/L (135-145) 12/25/24 12:11
Potassium 3.8 mmol/L (3.5-5.1) 12/25/24 12:11
BUN 17 mg/dl (7-17) 12/25/24 12:11
Creatinine 0.7 mg/dL (0.6-1.0) 12/25/24 12:11
Glucose 127 mg/dl (70-99) H 12/25/24 12:11
Troponins
12/25/24
12:11
Troponin I < 0.012
Vital Signs and I&O:
Vital Signs
Temp Pulse Resp BP Pulse Ox
97.9 F 112 18 106/68 99
12/25/24 13:57 12/25/24 13:57 12/25/24 13:57 12/25/24 13:57 12/25/24 13:57
Vital Signs
Temp Pulse Resp BP Pulse Ox
97.9 F 112 18 106/68 99
12/25/24 13:57 12/25/24 13:57 12/25/24 13:57 12/25/24 13:57 12/25/24 13:57
Intake & Output
12/23/24 12/24/24 12/25/24 12/26/24
06:59 06:59 06:59 06:59
Intake Total 1080 / 1080 960 / 960 600 / 600
Balance 1080 / 1080 960 / 960 600 / 600
Physical Exam
Physical Exam
GEN: No distress, awake, alert, oriented x3
HEENT: mmm
LUNGS: CTA b/l, no wheezes/rales
CV: Reg, S1/S2, no murmur
EXT: No clubbing, cyanosis, or edema
NEURO: Gross non-focal
SKIN: Warm, dry, no rash
[2024-12-25] MEDS: TOPROL XL 25 MG PO ×2 (14:18→21:10)
[2024-12-25 15:05] VITALS: BP 122/66
[2024-12-25] MEDS: LOPRESSOR 25 MG PO (15:32)
--- NOTE | 2024-12-25 16:29 | CM ---
Met with patient and daughter
rapid response called earlier today
will not discharge today
discussed plan for dc-daughter states patient will go home with her oversight and has plan in place for people to assist
PLAN: Home, when medically stable, no needs anticipated
daughter will transport
[2024-12-25] MEDS: CRESTOR 10 MG PO (17:59)
[2024-12-25] MEDS: ZETIA 10 MG PO (17:59)
--- NOTE | 2024-12-25 19:14 | PTCARENOTE ---
Morning dose of 50mg toporol XL held per MD order due to decreased HR 55. Pt called complaining of chest pain earlier this afternoon. ECG obtained, rapid response called. Pt in SVT. Bearing down and carotid massage by MD ineffective. Adenosine
given. Pt converted to NSR. Transferred to telemetry. Pt continued going in and out of SVT all afternoon with chest pain when sustained. MD and cardiology notified each time. Dosing of PO toporol XL adjusted and first dose administered in addition
to one time dose of PO Lopressor-see AUG. Pt remained in NSR for remainder of shift. POC ongoing.
[2024-12-25 19:57] VITALS: BP 119/61
[2024-12-25 23:24] LABS: Blood Urea Nitrogen 16 mg/dl (7-17); Calcium 8.2 mg/dl (8.4-10.2); Carbon Dioxide 19 mmol/L (22-30); Chloride 108 mmol/L (98-107); Estimated Creatinine Clearance 95 ml/min; Glucose 107 mg/dl (70-99); Magnesium 1.7 mg/dl (1.6-2.3); Potassium 4.1 mmol/L (3.5-5.1); Sodium 134 mmol/L (135-145); eGFR > 60.00
[2024-12-26 00:43] VITALS: BP 108/64
[2024-12-26] MEDS: MAGNESIUM SULFATE 102 GRAMS IV (00:47)
[2024-12-26 03:49] VITALS: BP 111/56
--- NOTE | 2024-12-26 05:43 | PTCARENOTE ---
NETSUITE CONSULTANT made aware @2210 that pt on tele HR is occasionally going up to the 150s and 160s but doesn't sustain. Patient's HR also occasionally would would go into the 50s. Patient is currently not c/o chest pain or any discomfort. PRN order of IV
lopressor 5 mg received to be administered for sustained HR >130, STAT mag and BMP ordered. Mag result 1.7, magnesium sulfate 1 gm in NSS ordered and administered 0047, plan of care continues.
[2024-12-26 06:00] VITALS: BMI 29.9
--- NOTE | 2024-12-26 07:53 | W.PN.HOSP.TC ---
Addendum entered and electronically signed by Jeffrey Gale MD 12/26/24 22:36:
Attending Addendum-
I saw and evaluated the patient. I reviewed the resident�s note and agree with findings and plan as documented in the resident�s note. Sub: had episodes of asymptomatic tachycardia overnight. 'I feel good today. I wanna go home' Full 10 point ROS
reviewed and negative except as documented Exam: Vitals reviewed in chart GEN-NAD heart RRR no M/R/G lungs decreased BS @ bases abd soft HEENT-right sided neck mass palpated Neuro MS 10/27 AAO x 3
Plan:
# SVT
- episodic
- EDUCATION GENERAL MANAGER 12/25-- adenosine 6mg given with resolution
- possibly AVNRT
- vagal maneuvers attempted without success
- BMP and trop ordered- WNL
- restarted metoprolol xl 25 PO BID
- d/w cards ok for DC home with close follow up
#Failure to Thrive/Gastritis
- CT Chest/Abdomen (12/20): No clear evidence for an esophageal mass or extrinsic compression on the esophagus, other than possible compression from the large pericardial effusion.
- ENDO 7/-5 cm hiatal hernia was present. Moderate inflammation characterized by congestion (edema) and nodularity was found in the gastric body and in the gastric antrum
-gastric bx taken
-cont IV PPI change to PO on DC
# Low grade temps with leukocytosis
- resolving
- secondary to atelectasis cont IS
- ctm repeat CBC as OP
#Pericardial Effusion-Acute
- echo 12/22-EF 60-65, Moderate to large pericardial effusion without evidence of hemodynamic compromise. Pericardial effusion measured up to 3.1 cm inferolaterally
- no evidence of tamponade physiology
- appreciate Cardiology input- cont to follow no intervention required
- follow up echo in 2-3 weeks with cards as OP
# Met Head/Neck CA
- Appreciate Oncology Recs: T/C Cancer type ID or molecular next gen sequencing.
- Once stabilized, F/U Dr. Krause for discussion of Tx CA Unknown Primary as OP
- Brain MRI as OP
DVT PPx: SCD
Diet: FLD
Code Status: Full
Dispo DC home
Time spent coordinating care, DC planning, review of DC plan of care with resident, transition of care, review of records, med rec/scripts sent electronically, consults, notes, d/w consultants, nursing, family, and CM� 33 mins >50% of this time was
devoted to counseling and coordination of care
Original Note:
Today's Communication/Plan
-
C/t monitor on tele pending final medication decision
appreciate cardio recs
Assessment / Plan
Assessment / Plan
64F PMHx unspecified cancer of the neck (in process of evaluation) with mets on recent PET imaging (12/19/2024), CAD s/p PCIx2, hypertension, dyslipidemia, GERD, who presented to the ED with complaint of weakness, difficulty with PO intake (dysphagia
and nausea) and generalized pain.
#Paroxysmal SVT, likely AVNRT
- EDUCATION GENERAL MANAGER from yesterday for symptomatic tachycardia --- ECG showing SVT, required Adenosine for conversion to Sinus. Cardiology reconsulted, back on BB but split dosing 25mg BID with prn Lopressor.
- 7/3 - trops negative
- Considering EP workup with possible ablation as OP
- overnight requiring Mag sulfate and IV Lopressor for rate control
- cardiology following - appreciate further recs
#Neck pain - most likely MSK related due to large mass in submandibular region -- brenda tylenol for pain control, avoid NSAIDs due to gastritis/GERD
#GERD/Dyspepsia/Gastritis
#Large Hiatal Hernia
- still on IV BID Protonix w/o symptom relief, already instructed her on positioning for eating and sleeping to help
- states pepcid has worked for her in the past, will add pepcid
#Leukocytosis (with increase in Monocytes, Granulocytes and Neutrophils)
#Thrombocytosis
#Cough
- infectious workup unrevealing -- cough more likely related to GERD w/o significant sputum production, SOB or hypoxia
- Will order incentive spirometry
#Failure to Thrive 2* Anorexia
- patient with decreased appetite and poor PO intake in the setting of newly diagnosed Stage IV Metastatic Ca of unknown primary
- IVF with D5LR on admission; advanced to full liquid diet, patient tolerating well
- CT Chest/Abdomen (12/20): No clear evidence for an esophageal mass or extrinsic compression on the esophagus, other than possible compression from the large pericardial effusion.
- Discussed radiation therapy vs. PEG -- hold off at this time until further workup with oncology
- GI following -- EGD 12/23 showing Large hiatal hernia w/ gastritis, presuming dysphagia is result of GERD/HH -- recommending HOB elevation, PPI BID, ADAT. GI Signing off
- Follow up with GI as OP for Biopsy results (may consider manometry/pH study if sx persist)
#Large Pericardial Effusion
- new, as seen on PET/CT (12/19)
- CT Chest/Abdomen (12/20): Large pericardial effusion with continued increase in size compared to the PET/CT from 12/19/2024. New compared to the CT from 11/13/2024.
- Echo with moderate to large effusion; no hemodynamic instability
- Cards following -- no plans for pericardiocentesis unless she becomes clinically unstable
- repeat Echo 2-3 weeks as OP
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
- Follow up with Dr. Krause on 12/30 for further management and treatment
- Patient scheduled for Brain MRI on Friday 12/29
#MADHURI, 2* dehydration (resolved)
- 1.6 on arrival, normalized now
- D/c IVF
- c/t hold HCTZ/ARB as pressures are still soft
- Daily BMP
#Hypovolemia (resolved)
- 82/66 with MADHURI on admission
- Given 1L NS Bolus in ED with improvement in BP to 102/60
- Given 1L NS Bolus on admission; continued on D5LR maintenance at 125ml/hr. Discontinued 12/21 with appropriate liquid diet intake.
- BPs stabilized, metoprolol restarted, continue to hold ARB/HCTZ for now
#Hypokalemia
- 3.7 am
- monitor with BMP
DVT PPx: SCD (patient declined subQ)
Diet: Regular Diet
Code Status: Full Code
Anticipated Discharge: 24 - 48 hours
Subjective/Interval History
-
Date of Service: December 26, 2024
Feels well this morning, still having nausea and neck pain. No new fevers or chills. No new cardiovascular symptoms. Overnight had several runs of tachycardia while asleep, requiring IV Mg sulfate and 25mg IV Lopressor. BMP drawn overnight -- Na
134, K 4.1, Ca 8.2, Mg 1.7.
Objective Data
-
Labs:
Laboratory Results
12/25/24
22:51
Sodium 134 L
Potassium 4.1
Chloride 108 H
Carbon Dioxide 19 L
BUN 16
Creatinine 0.6
Glucose 107 H
Calcium 8.2 L
Vital Signs:
Vital Signs
Temp Pulse Resp BP Pulse Ox
99.3 F 86 17 111/56 96
12/26/24 03:49 12/26/24 03:49 12/26/24 03:49 12/26/24 03:49 12/26/24 03:49
I&O
12/25/24 12/26/24 12/27/24
06:59 06:59 06:59
Intake Total 600 / 600 340 / 340
Balance 600 / 600 340 / 340
Review of Systems
-
History Source: Patient
All other systems: Reviewed and negative
Constitutional: Reports No Symptoms
EENT: Reports Other (neck pain, unchanged)
Respiratory: Reports No Symptoms
Cardiac: Reports No Symptoms
Abdomen/GI: Reports GERD and Indigestion
Genitourinary: Reports No Symptoms
Musculoskeletal: Reports No Symptoms
Skin: Reports No Symptoms
Neuro: Reports No Symptoms
Endocrine: Reports No Symptoms
Hematologic / Lymphatic: Reports No Symptoms
Physical Exam
-
General: Well Developed, Well Nourished, No Apparent Distress, Comfortable and Conversant
HEENT: Normocephalic, Atraumatic, Moist Mucous Membranes, PERRLA, Nose Appears Normal, Ears Appear Normal, Neck Masses (R submandibular mass, unchanged) and Other (R neck tender)
Respiratory: Clear to Auscultation; Negative Wheezes, Rales or Rhonchi
Cardiac: S1/S2, Irregular Rhythm and Murmur (systolic murmur)
Breast: Deferred by me
GI: Soft, Nontender, Nondistended and Normal Bowel Sounds
Rectal: Deferred by Provider
Genito-urinary: No Costovertebral Tender
Musculoskeletal: No Clubbing, No Cyanosis and No Edema
Skin: Warm, Dry and IV Access / Catheter Site
Neuro: AO x 3
Psych: Calm
[2024-12-26 07:59] VITALS: BP 118/63
[2024-12-26] MEDS: TYLENOL 650 MG PO ×2 (08:25→13:46)
[2024-12-26] MEDS: PEPCID 40 MG PO (08:25)
[2024-12-26] MEDS: TOPROL XL 25 MG PO (08:26)
[2024-12-26] MEDS: NSS (PRESERVATIVE FREE) 10 ML IV (08:29)
[2024-12-26] MEDS: PROTONIX IV 40 MG IV (08:29)
[2024-12-26 11:08] LABS: Hematocrit 37.1 % (37.0-47.0); Hemoglobin 13.0 g/dL (12.0-16.0); Mean Corp Hgb Conc. 35.0 g/dL (33.0-37.0); Mean Corpuscular Volume 85.7 fL (81.0-99.0); Nucleated Red Blood Cells % 0.6 %; Platelet Count 489 10^3/uL (130-400); Red Cell Dist. Width 13.4 % (11.5-14.5)
--- NOTE | 2024-12-26 11:56 | W.PN.CARDCBS ---
Today's Communication / Plan
-
Maintain current dose beta-johan
Okay for discharge from a cardiac standpoint
Impression / Plan
-
PCP: Dr. Calabrese
Security Incident Handler: Dr. Neri ([facility])
Impression:
Advanced malignancy of head and neck with marked lymphadenopathy along with extensive osseous lesions, metastatic
Moderate pericardial effusion
Mild hypotension and sinus tachycardia
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
Dehydration
CAD
h/o PCI 2013
Leukocytosis and thrombocytosis
Acute renal failure creatinine of 1.6 with elevated alkaline phosphatase
Hypertension
Hyperlipidemia
PET CT scan 12/19/2024 with numerous scattered FDG lesions in nearly all of the axial skeleton including ribs, humerus, sternum, pelvis, and enlarged lymph nodes in the mediastinum and head and neck area. Moderate pericardial effusion
Echo 05/31/2023: EF 55%, grade I diastolic dysfunction, mild MR, trace TR
Echo 12/22/2024: EF 60-65%, aortic sclerosis without stenosis, trace AR, moderate to large pericardial effusion without evidence of hemodynamic compromise. Pericardial effusion measures up to 3.1 cm inferolaterally
Plan:
Her beta-johan was held on the morning of 12/25/2024 due to heart rate of 55 bpm. Later that day she developed mostly short nonsustained runs of SVT and 1 sustained episode which self terminated. Findings on telemetry are most suggestive of AVNRT.
- We recommended resumption of beta-johan on 12/25/2024.
Today she has had no further runs of sustained VT. She has mild sinus bradycardia which is asymptomatic and does not require any further treatment. I would continue current dose of beta-johan.
From a cardiac standpoint she is stable for discharge today.
She has known moderate to large pericardial effusion on echocardiogram 12/22/2024. There is no evidence of hemodynamic compromise. Is felt the patient has been clinically stable so there is no recommendation for pericardiocentesis. She is arranged
for outpatient follow-up echo on 01/06/2025.
She does have history of coronary artery disease with prior PCI
Plavix held this admission for EGD due to dysphagia. EGD with large hiatal hernia and gastritis. Now on PPI.
Given h/o CAD w/ prior PCI, we recommended aspirin 81mg daily.
OP losartan and HCTZ have been on hold due to hypotension on arrival. We have not resumed antihypertensive drug therapy and she remains normotensive. Would discontinue losartan and hydrochlorothiazide
Will sign off, please call if any further questions.
HPI: 64-year-old female with past medical history of coronary artery disease status post PCI x 2, hypertension, hyperlipidemia GERD with advanced cervical mass/lymphadenopathy and likely cancer of unknown etiology presents to [facility] with
fatigue, shortness of breath, failure to thrive, and weight loss. She presented for an elective PET CT scan and was found to have a moderate pericardial effusion. She has not been able to eat or drink for weeks as she is having difficulty
swallowing. She denies any chest pains. She does have significant fatigue. Her breathing has been worse recently. She denies any lower extremity edema orthopnea. She has no palpitations or syncope. In the emergency room she was found to be
hypotensive with systolic blood pressures in the 90 range and tachycardic.
Progress Note - Security Incident Handler
Subjective
Date of Service: December 26, 2024
She tells me she feels well. No chest pain shortness of breath palpitations or dizziness
Objective
Labs:
12/26/24 10:55
12/25/24 22:51
Labs
Hgb 13.0 g/dL (12.0-16.0) 12/26/24 10:55
Hct 37.1 % (37.0-47.0) 12/26/24 10:55
Plt Count 489 10^3/uL (130-400) H 12/26/24 10:55
Sodium 134 mmol/L (135-145) L 12/25/24 22:51
Potassium 4.1 mmol/L (3.5-5.1) 12/25/24 22:51
BUN 16 mg/dl (7-17) 12/25/24 22:51
Creatinine 0.6 mg/dL (0.6-1.0) 12/25/24 22:51
Glucose 107 mg/dl (70-99) H 12/25/24 22:51
Troponins
12/25/24
12:11
Troponin I < 0.012
Vital Signs and I&O:
Vital Signs
Temp Pulse Resp BP Pulse Ox
99.1 F 84 21 118/63 97
12/26/24 07:59 12/26/24 08:26 12/26/24 07:59 12/26/24 08:26 12/26/24 07:59
Vital Signs
Temp Pulse Resp BP Pulse Ox
99.1 F 84 21 118/63 97
12/26/24 07:59 12/26/24 08:26 12/26/24 07:59 12/26/24 08:26 12/26/24 07:59
Intake & Output
12/24/24 12/25/24 12/26/24 12/27/24
06:59 06:59 06:59 06:59
Intake Total 960 / 960 600 / 600 340 / 340
Balance 960 / 960 600 / 600 340 / 340
Physical Exam
Physical Exam
Well-appearing no acute distress
Regular rate and rhythm normal S1 and S2 no S3 no S4
Lungs clear to auscultation bilateral
[2024-12-26 12:05] VITALS: BP 101/48
[2024-12-26 16:02] VITALS: BP 123/53
--- NOTE | 2024-12-26 16:35 | PTCARENOTE ---
Addendum entered by Yamini Colin RN 12/26/24 17:02:
....SVT for a few minutes then HR back to 80's then 60's. Dr. Graham made aware via tt that it happened and that she is supposed to be discharged. He reported that patient can still go home via TT. Pt is comfortable going home and will lay down
and rest if she feels this happeening. She has a Echo scheduled on 01/06 as outpatient.
Original Note:
pt discharged, had a few runs of SVT prior to discharge first when patient was packing up her belongings she felt fine other than feeling her heart rate faster, SVT 190-203 for a
== END 2024-12-26 17:23 | disposition home or self-care (01) | DRG 683 ==
LOC: 3 WEST ACU 19:07
PROVIDERS: Internal Medicine; Nurse Practitioner Family; Student in an Organized Health Care Education/Training Program; ADMITTING PHYSICIAN Internal Medicine; ATTENDING PHYSICIAN Family Medicine; CONSULT PHYSICIAN Internal Medicine; CONSULT PHYSICIAN Internal Medicine Hematology & Oncology; EMERGENCY PHYSICIAN Emergency Medicine; FAMILY PHYSICIAN Family Medicine
PROC: 0DB68ZX Excision of Stomach, Via Natural or Artificial Opening Endoscopic, Diagnostic (ICD-10-PCS; 2024-12-23)
DX: N17.9 Acute kidney failure, unspecified (principal); C79.9 Secondary malignant neoplasm of unspecified site; I31.39 Other pericardial effusion (noninflammatory); E87.20 Acidosis, unspecified; K29.70 Gastritis, unspecified, without bleeding; R62.7 Adult failure to thrive; D72.829 Elevated white blood cell count, unspecified; K44.9 Diaphragmatic hernia without obstruction or gangrene; D75.839 Thrombocytosis, unspecified; K21.9 Gastro-esophageal reflux disease without esophagitis; E86.0 Dehydration; E87.6 Hypokalemia; I10 Essential (primary) hypertension; E78.5 Hyperlipidemia, unspecified; C76.0 Malignant neoplasm of head, face and neck; I25.10 Atherosclerotic heart disease of native coronary artery without angina pectoris; Z80.3 Family history of malignant neoplasm of breast; Z85.41 Personal history of malignant neoplasm of cervix uteri; Z79.899 Other long term (current) drug therapy; Z90.710 Acquired absence of both cervix and uterus; Z98.61 Coronary angioplasty status; Z87.11 Personal history of peptic ulcer disease; J43.9 Emphysema, unspecified; Z72.0 Tobacco use; Z79.02 Long term (current) use of antithrombotics/antiplatelets
CPT/HCPCS: 71046; 71260; 74160; 80048; 80053; 81003; 81015; 82962; 82977; 83605; 83690; 83735; 84443; 84484; 85025; 85027; 87040; 88305; 88342; 93005; 93306; 96361; 96374; 99284; 99406; J0153; Q9967